=== PATIENT | female | born 1985 ===

== ENCOUNTER 2020-09-01 00:14 | Inpatient (IN) | payer BC ==
[2020-09-01] MEDS ORDERED: Butorphanol 1 MG/ML SDV IVPUSH PRN (00:52)
[2020-09-01] MEDS ORDERED: Nalbuphine 10 MG/1 ML Vial IVPUSH PRN (00:52)
[2020-09-01] MEDS ORDERED: Lidocaine 1% 50 ML MDV INJECT PRN (00:52)
[2020-09-01] MEDS ORDERED: Misoprostol 200 MCG Tab PO PRN (00:52)
[2020-09-01] MEDS ORDERED: Methylergonovine 0.2 MG/1 ML Amp IM PRN (00:52)
[2020-09-01] MEDS ORDERED: Sodium Chloride 0.9% 10 ML Syringe FLUSH PRN (00:52)
[2020-09-01] MEDS ORDERED: Tranexamic Acid 1,000 MG in Sodium Chloride 0.9% 100 ML IV PRN (00:52)
[2020-09-01] MEDS ORDERED: Water For Irrigation,Sterile 1,000 ML Container IRR PRN (00:52)
[2020-09-01] MEDS ORDERED: Sodium Chloride 0.9% 10 ML SDV IV PRN (00:52)
[2020-09-01] MEDS ORDERED: Carboprost Tromethamine 250 MCG/1 ML Amp IM PRN (00:52)
[2020-09-01] MEDS ORDERED: Sodium Chloride 0.9% 2.5 ML Syringe FLUSH PRN (00:52)
[2020-09-01] MEDS ORDERED: Terbutaline 1 MG/ML SDV SUBCUT PRN (00:52)
[2020-09-01] MEDS ORDERED: Ondansetron 4 MG/2 ML SDV IVPUSH PRN (01:00)
[2020-09-01] MEDS ORDERED: Oxytocin/0.9 % Sodium Chloride 30 UNIT/500 ML BAG IV SCH (01:00)
[2020-09-01] MEDS ORDERED: Ampicillin 2 GM Vial ONE (01:42)
[2020-09-01] MEDS ORDERED: Sodium Chloride 0.9% 100 ML ONE ×2 (01:42→05:35)
[2020-09-01] MEDS ORDERED: Misoprostol 25 MCG (1/4 of 100 MCG) Tab ONE (01:43)
[2020-09-01] MEDS: Misoprostol 25 MCG (1/4 of 100 MCG) Tab VAG SCH ×3 (01:51→10:23)
[2020-09-01] MEDS: Misoprostol 25 MCG (1/4 of 100 MCG) Tab PO SCH ×2 (01:51→05:51)
[2020-09-01] MEDS ORDERED: Ampicillin 2 GM in Sodium Chloride 0.9% 100 ML IV ONE (02:00)
[2020-09-01] MEDS ORDERED: Ampicillin 1 GM in Sodium Chloride 0.9% 50 ML IV SCH (05:30)
[2020-09-01] MEDS ORDERED: Ampicillin 1 GM Vial ONE (05:34)
[2020-09-01] MEDS: Ampicillin 1 GM in Sodium Chloride 0.9% 100 ML IV SCH ×5 (06:00→22:21)
--- NOTE | 2020-09-01 08:58 | PCM.LDHP ---
L&D History of Present Illness - General Date of Service: 09/01/20 Admit Problem/Dx: Patient Status Order with Admit Dx/Problem 09/01/20 00:52 Patient Status [ADT] Routine Admission Diagnosis/Problem Admission Diagnosis/Problem 09/01/20 08:52 Karen is a 34 yo at 38+2 weeks gestation (CORIE 09/13/2020) that presents to L&D today for medical induction of labor re: insulin-dependent type 2 diabetes mellitus. Patient seen in office 08/26/[address] Dean, RBAs of IOL and mode of cervical ripening (cytotec) discussed in office, consents signed. Reports adequate movement. Denies painful contractions, LOF, pattie vaginal bleeding at this time. O neg, RI, GBS positive. NKDA, plan for ampicillin prophylaxis in labor. EFW via [place] 8+ lbs. Pertinent medical history includes: DM2, spinal surgery. NKDA. Medications: 1000 mg metformin BID; Humulin Kwikpen 17 units in am and 17 units in pm. Patient has no complaints or concerns at this time. Source of Information: Patient History Limitations: Reports: No Limitations - History of Present Illness Improves with: Reports: None Worsens with: Reports: None Associated Symptoms: Reports: N - Related Data Allergies/Adverse Reactions: Allergies Allergy/AdvReac Type Severity Reaction Status Date / Time No Known Allergies Allergy Verified 08/12/20 09:19 Home Medications: Home Meds Insulin NPH Human Isophane [Humulin N Kwikpen] 17 units SUBCUT BID 09/01/20 [History] metFORMIN HCl [Metformin HCl] 1,000 mg PO BID 09/01/20 [History] Past Medical History HEENT History: Reports: None Cardiovascular History: Reports: None Respiratory History: Reports: None Gastrointestinal History: Reports: None Genitourinary History: Reports: None [employer]OR [employer]UR[employer]ES' [employer]ISTRY History: Reports: : 1 Para: 0 LMP (Approximate): Musculoskeletal History: Reports: Other (See Below) Other Musculoskeletal History: two spinal discs replaced during surgery using metal discs in lower back per pt Psychiatric History: Reports: Anxiety, Depression Other Psychiatric History: never took medications for anxiety or depression. pt states she has no suicidal thoughts Endocrine/Metabolic History: Reports: Diabetes, Type II (Insulin dependent), O besity/BMI 30+ Amount of Insulin Given with Breakfast (Units): 17 (insulin humulin N pen) Amount of Insulin Given with Dinner (Units): 17 (insulin humulin N pen) Hematologic History: Reports: None - Infectious Disease History Infectious Disease History: Reports: Chicken Pox Other Infectious Disease History: as a child pt had varicella - Past Surgical History HEENT Surgical History: Reports: None Cardiovascular Surgical History: Reports: None Endocrine Surgical History: Reports: None Musculoskeletal Surgical History: Reports: Other (See Below) Other Musculoskeletal Surgeries/Procedures:: two spinal discs replaced during surgery using metal discs in lower back per pt Dermatological Surgical History: Reports: None Social & Family History - Family History Family Medical History: No Pertinent Family History - Tobacco Use Tobacco Use Status *Q: Former Tobacco User Used Tobacco, but Quit: Yes Month/Year Tobacco Last Used: at 23 weeks gestation she quit when she found out she was Second Hand Smoke Exposure: No - Caffeine Use Caffeine Use: Reports: None - Alcohol Use Alcohol Use History: No - Recreational Drug Use Recreational Drug Use: Yes Drug Use in Last 12 Months: Yes Recreational Drug Type: Reports: Marijuana/Hashish Recreational Drug Last Use: at 23 weeks gestation of when she found out she was H&P Review of Systems - Review of Systems: Review Of Systems: Comprehensive ROS is negative, except as noted in HPI. General: Reports: No Symptoms HEENT: Reports: No Symptoms Pulmonary: Reports: No Symptoms Cardiovascular: Reports: No Symptoms Gastrointestinal: Reports: No Symptoms Genitourinary: Reports: No Symptoms Musculoskeletal: Reports: No Symptoms Skin: Reports: No Symptoms Psychiatric: Reports: No Symptoms Neurological: Reports: No Symptoms Hematologic/Lymphatic: Reports: No Symptoms Immunologic: Reports: No Symptoms L&D Exam - Exam Exam: See Below - Vital Signs Vital Signs: VSS, afebrile. See flowsheet. Weight: 224 lb - OB Specific Fundal Height In cm: 39 Contraction Duration (sec): 40-60 Contraction Frequency (min): 3-5 Contraction Intensity: Mild Movement: Active Heart Tones: Present Heart Tones per Min: 140 Heart Rate (FHR) Variability: Moderate (6-25 bmp) Presentation: Vertex (via TAUS) - Maier Score Maier Score Cervix Position: Posterior Maier Score Consistency: Firm Maier Score Effacement: 51-70% Maier Score Dilation: 1-2 cm Maier Score 's Station: -3 Maier Score Total: 3 - Exam General: Alert, Oriented, Cooperative HEENT: Hearing Intact, Mucosa Moist & [place], PERR[place] Neck: Supple, Trachea Midline Lungs: Clear to Auscultation, Normal Respiratory Effort Cardiovascular: Regular Rate, Regular Rhythm GI/Abdominal Exam: Normal Bowel Sounds, Soft, Non-Tender, No Organomegaly, No Distention Rectal Exam: Deferred Genitourinary: Normal external exam, Normal bimanual exam, Enlarged uterus (Gravid uterus) Back Exam: Normal Inspection, Full Range of Motion Extremities: Normal Inspection, Normal Range of Motion, Non-Tender, No Pedal Edema, Normal Capillary Refill Skin: Warm, Dry, Intact Neurological: Cranial Nerves Intact, Reflexes Equal Bilateral Psychiatric: Alert, Normal Affect, Normal Mood - Patient Data Lab Results Last 24 hrs: Laboratory Results - last 24 hr 09/01/20 09/01/20 09/01/20 Range/Units 01:20 01:20 01:20 WBC 9.51 (4.0-11.0) K/uL RBC 4.76 (4.30-5.90) M/uL Hgb 13.9 (12.0-16.0) g/dL Hct 41.4 (36.0-46.0) % MCV 87.0 (80.0-98.0) fL MCH 29.2 (27.0-32.0) pg MCHC 33.6 (31.0-37.0) g/dL RDW Std Deviation 44.5 (28.0-62.0) fl RDW Coeff of Griffin 14 (11.0-15.0) % Plt Count 166 (150-400) K/uL MPV 13.30 H (7.40-12.00) fL Nucleated RBC % 0.0 /100WBC Nucleated RBCs # 0 K/uL POC Glucose (70-99) mg/dL SARS-CoV-2 RNA (DANA) NEGATIVE (NEGATIVE) Blood Type O NEGATIVE Antibody Screen NEGATIVE 09/01/20 09/01/20 09/01/20 Range/Units 02:06 04:40 06:57 WBC (4.0-11.0) K/uL RBC (4.30-5.90) M/uL Hgb (12.0-16.0) g/dL Hct (36.0-46.0) % MCV (80.0-98.0) fL MCH (27.0-32.0) pg MCHC (31.0-37.0) g/dL RDW Std Deviation (28.0-62.0) fl RDW Coeff of Griffin (11.0-15.0) % Plt Count (150-400) K/uL MPV (7.40-12.00) fL Nucleated RBC % /100WBC Nucleated RBCs # K/uL POC Glucose 88 78 99 (70-99) mg/dL SARS-CoV-2 RNA (DANA) (NEGATIVE) Blood Type Antibody Screen Result Diagrams: 09/01/20 01:20 - Problem List (1) Encounter for induction of labor SNOMED Code(s): 784615824 ICD Code: Z34.90 - ENCNTR FOR SUPRVSN OF NORMAL , UNSP, UNSP TRIMESTER Status: Acute Priority: High Current Visit: Yes (2) Type 2 diabetes mellitus SNOMED Code(s): 28566485 ICD Code: E11.9 - TYPE 2 DIABETES MELLITUS WITHOUT COMPLICATIONS Status: Acute Priority: High Current Visit: Yes (3) Insulin dependent diabetes mellitus SNOMED Code(s): 89412777 ICD Code: [id number] - Status: Acute Priority: High Current Visit: Yes (4) 38 weeks gestation of SNOMED Code(s): 40985574 ICD Code: Z3A.38 - 38 WEEKS GESTATION OF Status: Acute Priority: High Current Visit: Yes Problem List Initiated/Reviewed/Updated: Yes Orders Last 24hrs: Active Orders 24 hr Category Date Time Status Patient Status [ADT] Routine ADT 09/01/20 00:52 Active Bedrest Bathroom Privileges [RC] ASDIRECTED Care 09/01/20 00:52 Active Bedrest Bathroom Privileges [RC] ASDIRECTED Care 09/01/20 01:00 Active Blood Glucose Check, Bedside [RC] Q4HR Care 09/01/20 07:00 Active Communication Order [RC] ASDIRECTED Care 09/01/20 00:52 Active Communication Order [RC] ASDIRECTED Care 09/01/20 00:52 Active Communication Order [RC] ASDIRECTED Care 09/01/20 00:52 Active Heart Tones [RC] CONTINUOUS Care 09/01/20 00:52 Active Non Stress Test [RC] PER UNIT ROUTINE Care 09/01/20 00:52 Active May Shower [RC] ASDIRECTED Care 09/01/20 00:52 Active Notify Provider [RC] PRN Care 09/01/20 00:52 Active Notify Provider [RC] PRN Care 09/01/20 00:52 Active Notify Provider [RC] PRN Care 09/01/20 00:52 Active Notify Provider [RC] STAT Care 09/01/20 00:52 Active Oxygen Therapy [RC] ASDIRECTED Care 09/01/20 00:52 Active Up ad Lola [RC] ASDIRECTED Care 09/01/20 00:52 Active Vaginal Exam [RC] PRN Care 09/01/20 00:52 Active Vaginal Exam [RC] PRN Care 09/01/20 00:52 Active Vital Signs [RC] PER UNIT ROUTINE Care 09/01/20 00:52 Active Vital Signs [RC] PER UNIT ROUTINE Care 09/01/20 00:52 Active Clear Liquid Diet [DIET] Diet 09/01/20 Breakfast Active Clear Liquid Diet [DIET] Diet 09/01/20 Breakfast Active RPR (SYPHILIS SERO) W/ RFLX [REF] Routine Lab 09/01/20 01:20 Received Ampicillin 1 gm Med 09/01/20 06:00 Active Sodium Chloride 0.9% [Normal Saline] 100 ml IV Q4H Butorphanol [Stadol] Med 09/01/20 01:37 Active 1 mg IVPUSH Q1H PRN Carboprost Tromethamine [Hemabate DS] Med 09/01/20 00:52 Active 250 mcg IM ASDIRECTED PRN Lactated Ringers [Ringers, Lactated] 1,000 ml Med 09/01/20 01:00 Active IV ASDIRECTED Lidocaine 1% [Xylocaine 1%] Med 09/01/20 00:52 Active 50 ml INJECT ONETIME PRN Methylergonovine [Methergine] Med 09/01/20 00:52 Active 0.2 mg IM ASDIRECTED PRN Nalbuphine [Nubain] Med 09/01/20 00:52 Active 10 mg IVPUSH Q1H PRN Ondansetron [Zofran] Med 09/01/20 01:00 Active 4 mg IVPUSH Q6H PRN Oxytocin/0.9 % Sodium Chloride [Oxytocin 30 Unit/500 ML Med 09/01/20 01:00 Active -NS] 30 unit in 500 ml IV TITRATE Oxytocin/0.9 % Sodium Chloride [Oxytocin 30 Unit/500 ML Med 09/01/20 01:00 Active -NS] 30 unit in 500 ml IV TITRATE Sodium Chloride 0.9% [Normal Saline] Med 09/01/20 00:52 Active 10 ml IV ASDIRECTED PRN Sodium Chloride 0.9% [Saline Flush] Med 09/01/20 00:52 Active 10 ml FLUSH ASDIRECTED PRN Sodium Chloride 0.9% [Saline Flush] Med 09/01/20 00:52 Active 2.5 ml FLUSH ASDIRECTED PRN Terbutaline [Brethine] Med 09/01/20 00:52 Active 0.25 mg SUBCUT ASDIRECTED PRN Tranexamic Acid [Cyklokapron] 1,000 mg Med 09/01/20 00:52 Active Sodium Chloride 0.9% [Normal Saline] 100 ml IV ONETIME Water For Irrigation,Sterile [Sterile Water for Med 09/01/20 00:52 Active Irrigation] 1,000 ml IRR ASDIRECTED PRN miSOPROStoL [Cytotec] Med 09/01/20 00:52 Active 200 mcg PO ONETIME PRN miSOPROStoL [Cytotec] Med 09/01/20 01:30 Active 25 mcg PO Q4H miSOPROStoL [Cytotec] Med 09/01/20 01:30 Active 25 mcg VAG Q4H Scalp Electrode [WOMSER] Per Unit Routine Oth 09/01/20 00:52 Ordered Medication Administration Instruction [OM.PC] Q3H Oth 09/01/20 01:00 Ordered Peripheral IV Insertion Adult [OM.PC] Routine Oth 09/01/20 00:52 Ordered Resuscitation Status Routine Resus Stat 09/01/20 00:52 Ordered Medication Orders Butorphanol Tartrate (Butorphanol 1 Mg/Ml Sdv) 1 mg IVPUSH Q1H PRN PRN Reason: Pain Carboprost Tromethamine (Carboprost Tromethamine 250 Mcg/1 Ml Amp) 250 mcg IM ASDIRECTED PRN PRN Reason: Post Hemorrhage Lactated Ringer's (Ringers, Lactated) 1,000 mls @ 150 mls/hr IV ASDIRECTED [facility]IAZ Oxytocin/Sodium Chloride (Oxytocin 30 Unit/500 Ml-Ns) 30 unit in 500 mls @ 2 mls/hr IV TITRATE [facility]; Protocol Tranexamic Acid 1,000 mg/ (Sodium Chloride) 110 mls @ 660 mls/hr IV ONETIME PRN PRN Reason: Bleeding Oxytocin/Sodium Chloride (Oxytocin 30 Unit/500 Ml-Ns) 30 unit in 500 mls @ 2 mls/hr IV TITRATE [facility]; Protocol Ampicillin Sodium 1 gm/ Sodium (Chloride) 100 mls @ 100 mls/hr IV Q4H [facility] Last Admin: 09/01/20 06:00 Dose: 100 mls/hr Documented by: LAURO Lidocaine HCl (Lidocaine 1% 50 Ml Mdv) 50 ml INJECT ONETIME PRN PRN Reason: Laceration repair Methylergonovine Maleate (Methylergonovine 0.2 Mg/1 Ml Amp) 0.2 mg IM ASDIRECTED PRN PRN Reason: Post Hemorrhage Misoprostol (Misoprostol 200 Mcg Tab) 200 mcg PO ONETIME PRN PRN Reason: Post Hemorrhage Misoprostol (Misoprostol 25 Mcg (1/4 Of 100 Mcg) Tab) 25 mcg PO Q4H [facility] Last Admin: 09/01/20 05:51 Dose: 25 mcg Documented by: Admin: 09/01/20 01:51 Dose: 25 mcg Documented by: LAURO Misoprostol (Misoprostol 25 Mcg (1/4 Of 100 Mcg) Tab) 25 mcg VAG Q4H [facility] Stop: 09/02/20 05:31 Last Admin: 09/01/20 05:51 Dose: 25 mcg Documented by: Admin: 09/01/20 01:51 Dose: 25 mcg Documented by: LAURO Nalbuphine HCl (Nalbuphine 10 Mg/1 Ml Vial) 10 mg IVPUSH Q1H PRN PRN Reason: Pain (severe 7-10) Ondansetron HCl (Ondansetron 4 Mg/2 Ml Sdv) 4 mg IVPUSH Q6H PRN PRN Reason: Nausea/Vomiting Sodium Chloride (Sodium Chloride 0.9% 10 Ml Syringe) 10 ml FLUSH ASDIRECTED PRN PRN Reason: Keep Vein Open Sodium Chloride (Sodium Chloride 0.9% 2.5 Ml Syringe) 2.5 ml FLUSH ASDIRECTED PRN PRN Reason: Keep Vein Open Sodium Chloride (Sodium Chloride 0.9% 10 Ml Sdv) 10 ml IV ASDIRECTED PRN PRN Reason: IV Use Sterile Water (Water For Irrigation,Sterile 1,000 Ml Container) 1,000 ml IRR ASDIRECTED PRN PRN Reason: delivery Terbutaline Sulfate (Terbutaline 1 Mg/Ml Sdv) 0.25 mg SUBCUT ASDIRECTED PRN PRN Reason: Tacysystole Assessment/Plan Comment:: Admit for observation in anticipation of of term viable . FHR Cat I. Mild occassional contractions noted. Expectant management, reassess cervical dilation ~1000 am. If no change has been made, may administer cytotec per orders. Continuous EFM + TOCO monitoring. FSBSs q 4 hours. Insulin administration as ordered. May consult anesthesia about epidural analgesia, may receive epidural >/=5 cm[address] See new orders. Dr. Dean notified and agreeable with POC, en route to bedside to assume care.
[2020-09-01] MEDS ORDERED: 50% Dextrose in Water 50 ML Syringe IV PRN ×2 (09:00→09:06)
[2020-09-01] MEDS ORDERED: Glucagon,Human Recombinant 1 MG Vial IM PRN ×2 (09:00→09:06)
[2020-09-01] MEDS: Insulin Isophane NPH, Human 100 Units/ML 10 ML Vial SUBCUT SCH ×2 (09:35→22:24)
[2020-09-01] MEDS ORDERED: Misoprostol 50 MCG (1/2 of 100 MCG) Tab VAG SCH (10:00)
[2020-09-01] MEDS ORDERED: Misoprostol 25 MCG (1/4 of 100 MCG) Tab PO SCH (10:00)
[2020-09-01] MEDS ORDERED: Misoprostol 50 MCG (1/2 of 100 MCG) Tab PO SCH (10:00)
[2020-09-01] MEDS ORDERED: Insulin Aspart 100 Units/ML 3 ML Pen SUBCUT SCH (11:30)
[2020-09-01] MEDS: Oxytocin/0.9 % Sodium Chloride 30 UNIT/500 ML BAG IV SCH (14:37)
[2020-09-01] MEDS: Lactated Ringers 1,000 ML IV SCH (20:00)
[2020-09-01] MEDS ORDERED: Sodium Chloride 0.9% 50 ML ONE (22:15)
[2020-09-02] MEDS: Misoprostol 25 MCG (1/4 of 100 MCG) Tab PO SCH ×2 (00:30→05:05)
[2020-09-02] MEDS: Misoprostol 25 MCG (1/4 of 100 MCG) Tab VAG SCH ×2 (00:31→05:05)
[2020-09-02] MEDS: Ampicillin 1 GM in Sodium Chloride 0.9% 100 ML IV SCH ×3 (02:59→10:10)
[2020-09-02] MEDS: Lactated Ringers 1,000 ML IV SCH ×4 (06:44→22:40)
[2020-09-02] MEDS: Insulin Isophane NPH, Human 100 Units/ML 10 ML Vial SUBCUT SCH ×2 (09:05→22:42)
[2020-09-02] MEDS: Oxytocin/0.9 % Sodium Chloride 30 UNIT/500 ML BAG IV SCH (09:06)
[2020-09-02] MEDS ORDERED: Ampicillin 1 GM in Sodium Chloride 0.9% 50 ML IV SCH ×2 (11:17→14:00)
[2020-09-02] MEDS ORDERED: Promethazine 25 MG/ML SDV IM PRN (13:08)
[2020-09-02] MEDS: Butorphanol 1 MG/ML SDV IVPUSH PRN ×2 (13:17→14:29)
[2020-09-02] MEDS ORDERED: Ropivacaine HCl/PF 100 ML ONE (14:47)
--- NOTE | 2020-09-02 15:32 | PCM.PREANE ---
Preanesthetic Assessment - Procedure Proposed Procedure: continuous labor epidural - Anesthesia/Transfusion/Family Hx Anesthesia History: Prior Anesthesia Without Reaction Transfusion History: Unknown - Review of Systems General: No Symptoms Pulmonary: No Symptoms Cardiovascular: No Symptoms Gastrointestinal: No Symptoms Neurological: No Symptoms Other: Reports: None - Physical Assessment Height: 5 ft 4 in Weight: 101.605 kg ASA Class: 2 Mental Status: Alert & Oriented x3 Dentition: Reports: Normal Dentition ROM/Head Extension: Full Lungs: Clear to Auscultation, Normal Respiratory Effort Cardiovascular: Regular Rate, Regular Rhythm - Lab Values: Laboratory Last Values WBC 9.51 K/uL (4.0-11.0) 09/01/20 01:20 RBC 4.76 M/uL (4.30-5.90) 09/01/20 01:20 Hgb 13.9 g/dL (12.0-16.0) 09/01/20 01:20 Hct 41.4 % (36.0-46.0) 09/01/20 01:20 MCV 87.0 fL (80.0-98.0) 09/01/20 01:20 MCH 29.2 pg (27.0-32.0) 09/01/20 01:20 MCHC 33.6 g/dL (31.0-37.0) 09/01/20 01:20 RDW Std Deviation 44.5 fl (28.0-62.0) 09/01/20 01:20 RDW Coeff of Griffin 14 % (11.0-15.0) 09/01/20 01:20 Plt Count 166 K/uL (150-400) 09/01/20 01:20 MPV 13.30 fL (7.40-12.00) H 09/01/20 01:20 Nucleated RBC % 0.0 /100WBC 09/01/20 01:20 Nucleated RBCs # 0 K/uL 09/01/20 01:20 POC Glucose 85 mg/dL (70-99) 09/02/20 14:01 RPR Non-Reac (Non-Reac) 09/01/20 01:20 SARS-CoV-2 RNA (DANA) NEGATIVE (NEGATIVE) 09/01/20 01:20 Blood Type O NEGATIVE 09/01/20 01:20 Antibody Screen NEGATIVE 09/01/20 01:20 - Allergies Allergies/Adverse Reactions: Allergies Allergy/AdvReac Type Severity Reaction Status Date / Time No Known Allergies Allergy Verified 08/12/20 09:19 - Acknowledgements Anesthesia Type Planned: Epidural Pt an Appropriate Candidate for the Planned Anesthesia: Yes Alternatives and Risks of Anesthesia Discussed w Pt/Guardian: Yes Pt/Guardian Understands and Agrees with Anesthesia Plan: Yes PreAnesthesia Questionnaire HEENT History: Reports: None Cardiovascular History: Reports: None Respiratory History: Reports: None Gastrointestinal History: Reports: None Genitourinary History: Reports: None 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 no scars on her back. pt. reported it was an anterior approach for the disc replacements, a request for the records was sent to the facility that completed the operation, however not able to get the records in a timely manner. [place] that since there was no scar in the back that ligamentum flavum was still in place. Pt. thought the disc replacements were at L4-5 and L5-S1. Pt. wasn't 100% sure of the correct level. Plan to do the epidural at L2-3. Neurological History: Reports: None Psychiatric History: Reports: Anxiety, Depression Other Psychiatric History: never took medications for anxiety or depression. pt states she has no suicidal thoughts Endocrine/Metabolic History: Reports: Diabetes, Type II (Insulin dependent), Obesity/BMI 30+ Hematologic History: Reports: None Dermatologic History: Reports: None - Infectious Disease History Infectious Disease History: Reports: Chicken Pox Other Infectious Disease History: as a child pt had varicella - Past Surgical History HEENT Surgical History: Reports: None Cardiovascular Surgical History: Reports: None Endocrine Surgical History: Reports: None Musculoskeletal Surgical History: Reports: Other (See Below) Other Musculoskeletal Surgeries/Procedures:: two spinal discs replaced during surgery using metal discs in lower back per pt Dermatological Surgical History: Reports: None - Past Imaging History Past Imaging History: Reports: Other (See Below) (post operative x-ray of spine surgery not available) - SUBSTANCE USE Tobacco Use Status *Q: Former Tobacco User Tobacco Use Within Last Twelve Months: Cigarettes Second Hand Smoke Exposure: No Recreational Drug Use History: Yes Recreational Drug Type: Reports: Marijuana/Hashish Recreational Drug Last Use: at 23 weeks gestation of when she found out she was - HOME MEDS Home Medications: Home Meds Insulin NPH Human Isophane [Humulin N Kwikpen] 17 units SUBCUT BID 09/01/20 [History] metFORMIN HCl [Metformin HCl] 1,000 mg PO BID 09/01/20 [History] - CURRENT (IN HOUSE) MEDS Current Meds: Current Medications Butorphanol Tartrate (Butorphanol 1 Mg/Ml Sdv) 1 mg IVPUSH Q1H PRN PRN Reason: Pain Last Admin: 09/02/20 14:29 Dose: 1 mg Documented by: Carboprost Tromethamine (Carboprost Tromethamine 250 Mcg/1 Ml Amp) 250 mcg IM ASDIRECTED PRN PRN Reason: Post Hemorrhage Dextrose/Water (50% Dextrose In Water 50 Ml Syringe) 50 ml IV ASDIRECTED PRN PRN Reason: Hypoglycemia Glucagon (Glucagon,Human Recombinant 1 Mg Vial) 1 mg IM ASDIRECTED PRN PRN Reason: Hypoglycemia Lactated Ringer's (Ringers, Lactated) 1,000 mls @ 150 mls/hr IV ASDIRECTED [facility] Last Admin: 09/02/20 15:20 Dose: 125 mls/hr Documented by: Oxytocin/Sodium Chloride (Oxytocin 30 Unit/500 Ml-Ns) 30 unit in 500 mls @ 2 mls/hr IV TITRATE [facility]; Protocol Tranexamic Acid 1,000 mg/ (Sodium Chloride) 110 mls @ 660 mls/hr IV ONETIME PRN PRN Reason: Bleeding Oxytocin/Sodium Chloride (Oxytocin 30 Unit/500 Ml-Ns) 30 unit in 500 mls @ 2 mls/hr IV TITRATE [facility]; Protocol Last Admin: 09/02/20 09:06 Dose: 2 munits/min, 2 mls/hr Documented by: Ampicillin Sodium 1 gm/ Sodium (Chloride) 50 mls @ 50 mls/hr IV Q4H [facility] Last Admin: 09/02/20 14:15 Dose: 50 mls/hr Documented by: Insulin Aspart (Insulin Aspart 100 Units/Ml 3 Ml Pen) 1 - 4 unit SUBCUT TIDAC [facility] Last Admin: 09/02/20 01:15 Dose: 2 units Documented by: Insulin Human NPH (Insulin Isophane Nph, Human 100 Units/Ml 10 Ml Vial) 15 unit SUBCUT BIDAC [facility] Last Admin: 09/02/20 09:05 Dose: 15 units Documented by: Lidocaine HCl (Lidocaine 1% 50 Ml Mdv) 50 ml INJECT ONETIME PRN PRN Reason: Laceration repair Methylergonovine Maleate (Methylergonovine 0.2 Mg/1 Ml Amp) 0.2 mg IM ASDIRECTED PRN PRN Reason: Post Hemorrhage Misoprostol (Misoprostol 200 Mcg Tab) 200 mcg PO ONETIME PRN PRN Reason: Post Hemorrhage Misoprostol (Misoprostol 25 Mcg (1/4 Of 100 Mcg) Tab) 25 mcg PO Q4H [facility] Last Admin: 09/01/20 10:23 Dose: 25 mcg Documented by: Nalbuphine HCl (Nalbuphine 10 Mg/1 Ml Vial) 10 mg IVPUSH Q1H PRN PRN Reason: Pain (severe 7-10) Ondansetron HCl (Ondansetron 4 Mg/2 Ml Sdv) 4 mg IVPUSH Q6H PRN PRN Reason: Nausea/Vomiting Promethazine HCl (Promethazine 25 Mg/Ml Sdv) 12.5 mg IM Q4H PRN PRN Reason: Nausea/Vomiting Last Admin: 09/02/20 13:25 Dose: 12.5 mg Documented by: Sodium Chloride (Sodium Chloride 0.9% 10 Ml Syringe) 10 ml FLUSH ASDIRECTED PRN PRN Reason: Keep Vein Open Sodium Chloride (Sodium Chloride 0.9% 2.5 Ml Syringe) 2.5 ml FLUSH ASDIRECTED PRN PRN Reason: Keep Vein Open Sodium Chloride (Sodium Chloride 0.9% 10 Ml Sdv) 10 ml IV ASDIRECTED PRN PRN Reason: IV Use Sterile Water (Water For Irrigation,Sterile 1,000 Ml Container) 1,000 ml IRR DIRECTED PRN PRN Reason: delivery Terbutaline Sulfate (Terbutaline 1 Mg/Ml Sdv) 0.25 mg SUBCUT ASDIRECTED PRN PRN Reason: Tacysystole Discontinued Medications Ampicillin Sodium (Ampicillin 1 Gm Vial) Confirm Administered Dose 1 gm .ROUTE .STK-MED ONE Stop: 09/01/20 05:35 Ampicillin Sodium (Ampicillin 2 Gm Vial) Confirm Administered Dose 2 gm .ROUTE .STK-MED ONE Stop: 09/01/20 01:43 Butorphanol Tartrate (Butorphanol 1 Mg/Ml Sdv) 1 mg IVPUSH Q1H PRN PRN Reason: Pain Ampicillin Sodium 2 gm/ Sodium (Chloride) 100 mls @ 200 mls/hr IV ONETIME ONE Stop: 09/01/20 02:29 Last Admin: 09/01/20 01:52 Dose: 200 mls/hr Documented by: Ampicillin Sodium 1 gm/ Sodium (Chloride) 50 mls @ 100 mls/hr IV Q4H [facility] Ampicillin Sodium 1 gm/ Sodium (Chloride) 100 mls @ 100 mls/hr IV Q4H [facility] Last Admin: 09/02/20 10:10 Dose: 100 mls/hr Documented by: Sodium Chloride (Normal Saline) Confirm Administered Dose 100 mls @ as directed .ROUTE .STK-MED ONE Stop: 09/01/20 05:36 Sodium Chloride (Normal Saline) Confirm Administered Dose 100 mls @ as directed .ROUTE .STK-MED ONE Stop: 09/01/20 01:43 Sodium Chloride (Normal Saline) Confirm Administered Dose 50 mls @ as directed .ROUTE .STK-MED ONE Stop: 09/01/20 22:16 Ropivacaine (Naropin 0.2%) Confirm Administered Dose 100 mls @ as directed .ROUTE .STK-MED ONE Stop: 09/02/20 14:48 Misoprostol (Misoprostol 25 Mcg (1/4 Of 100 Mcg) Tab) 25 mcg PO Q4H [facility] Last Admin: 09/02/20 05:05 Dose: 25 mcg Documented by: Misoprostol (Misoprostol 25 Mcg (1/4 Of 100 Mcg) Tab) 25 mcg VAG Q4H [facility] Stop: 09/02/20 05:31 Last Admin: 09/02/20 05:05 Dose: 25 mcg Documented by: Misoprostol (Misoprostol 50 Mcg (1/2 Of 100 Mcg) Tab) 50 mcg PO Q4H [facility] Misoprostol (Misoprostol 50 Mcg (1/2 Of 100 Mcg) Tab) 50 mcg VAG Q4H [facility] Stop: 09/02/20 06:01 Misoprostol (Misoprostol 25 Mcg (1/4 Of 100 Mcg) Tab) Confirm Administered Dose 50 mcg .ROUTE .STK-MED ONE Stop: 09/01/20 01:44 Misoprostol (Misoprostol 25 Mcg (1/4 Of 100 Mcg) Tab) 25 mcg VAG Q4H [facility] Stop: 09/02/20 06:01 Last Admin: 09/02/20 00:31 Dose: 25 mcg Documented by:
[2020-09-02] MEDS ORDERED: Sodium Chloride 0.9% 10 ML Syringe FLUSH PRN (17:10)
[2020-09-02] MEDS ORDERED: Sodium Chloride 0.9% 2.5 ML Syringe FLUSH PRN (17:10)
[2020-09-02] MEDS ORDERED: Sodium Chloride 0.9% 10 ML SDV IV PRN (17:10)
[2020-09-02] MEDS ORDERED: ceFAZolin 2 GM in Premix Bag 1 BAG IV ONE (17:10)
[2020-09-02] MEDS ORDERED: Citric Acid/Sodium Citrate Solution 30 ML Cup PO ONE (17:10)
[2020-09-02] MEDS ORDERED: Lactated Ringers 1,000 ML IV SCH (17:15)
[2020-09-02] MEDS ORDERED: Oxytocin/0.9 % Sodium Chloride 30 UNIT/500 ML BAG IV SCH (17:15)
[2020-09-02] MEDS ORDERED: Lidocaine 2% with EPINEPHrine 1:200,000 20 ML SDV ONE (17:16)
[2020-09-02] MEDS ORDERED: ceFAZolin 1 GM Vial ONE (17:18)
[2020-09-02] MEDS ORDERED: Oxytocin 10 Units/1 ML SDV ONE ×3 (17:18→19:10)
[2020-09-02] MEDS ORDERED: Morphine PF 10 MG/10 ML SDV ONE (17:18)
[2020-09-02] MEDS ORDERED: Sodium Chloride 0.9% 20 ML ONE (17:18)
[2020-09-02] MEDS ORDERED: Clindamycin Phosphate in D5W 50 ML ONE (17:30)
--- NOTE | 2020-09-02 17:35 | PCM.PNLD ---
Labor Progress Note - VS & Meds Active Medications: Current Medications Lactated Ringer's (Ringers, Lactated) 1,000 mls @ 500 mls/hr IV BOLUS RIAZ Oxytocin/Sodium Chloride (Oxytocin 30 Unit/500 Ml-Ns) 30 unit in 500 mls @ 250 mls/hr IV TITRATE RIAZ Cefazolin Sodium/Dextrose 2 gm (/ Premix) 50 mls @ 100 mls/hr IV ONETIME ONE Stop: 09/02/20 17:39 Sodium Chloride (Sodium Chloride 0.9% 10 Ml Syringe) 10 ml FLUSH ASDIRECTED PRN PRN Reason: Keep Vein Open Sodium Chloride (Sodium Chloride 0.9% 2.5 Ml Syringe) 2.5 ml FLUSH ASDIRECTED PRN PRN Reason: Keep Vein Open Sodium Chloride (Sodium Chloride 0.9% 10 Ml Sdv) 10 ml IV ASDIRECTED PRN PRN Reason: IV Use Discontinued Medications Ampicillin Sodium (Ampicillin 1 Gm Vial) Confirm Administered Dose 1 gm .ROUTE .STK-MED ONE Stop: 09/01/20 05:35 Ampicillin Sodium (Ampicillin 2 Gm Vial) Confirm Administered Dose 2 gm .ROUTE .STK-MED ONE Stop: 09/01/20 01:43 Butorphanol Tartrate (Butorphanol 1 Mg/Ml Sdv) 1 mg IVPUSH Q1H PRN PRN Reason: Pain Butorphanol Tartrate (Butorphanol 1 Mg/Ml Sdv) 1 mg IVPUSH Q1H PRN PRN Reason: Pain Last Admin: 09/02/20 14:29 Dose: 1 mg Documented by: Carboprost Tromethamine (Carboprost Tromethamine 250 Mcg/1 Ml Amp) 250 mcg IM ASDIRECTED PRN PRN Reason: Post Hemorrhage Cefazolin Sodium (Cefazolin 1 Gm Vial) Confirm Administered Dose 2 gm .ROUTE .STK-MED ONE Stop: 09/02/20 17:19 Citric Acid/Sodium Citrate (Citric Acid/Sodium Citrate Solution 30 Ml Cup) 30 ml PO ONETIME ONE Stop: 09/02/20 17:11 Dextrose/Water (50% Dextrose In Water 50 Ml Syringe) 50 ml IV ASDIRECTED PRN PRN Reason: Hypoglycemia Glucagon (Glucagon,Human Recombinant 1 Mg Vial) 1 mg IM ASDIRECTED PRN PRN Reason: Hypoglycemia Lactated Ringer's (Ringers, Lactated) 1,000 mls @ 150 mls/hr IV ASDIRECTED [facility] Last Admin: 09/02/20 16:28 Dose: 125 mls/hr Documented by: Oxytocin/Sodium Chloride (Oxytocin 30 Unit/500 Ml-Ns) 30 unit in 500 mls @ 2 mls/hr IV TITRATE [facility]; Protocol Tranexamic Acid 1,000 mg/ (Sodium Chloride) 110 mls @ 660 mls/hr IV ONETIME PRN PRN Reason: Bleeding Oxytocin/Sodium Chloride (Oxytocin 30 Unit/500 Ml-Ns) 30 unit in 500 mls @ 2 mls/hr IV TITRATE [facility]; Protocol Last Admin: 09/02/20 09:06 Dose: 2 munits/min, 2 mls/hr Documented by: Ampicillin Sodium 2 gm/ Sodium (Chloride) 100 mls @ 200 mls/hr IV ONETIME ONE Stop: 09/01/20 02:29 Last Admin: 09/01/20 01:52 Dose: 200 mls/hr Documented by: Ampicillin Sodium 1 gm/ Sodium (Chloride) 50 mls @ 100 mls/hr IV Q4H [facility] Ampicillin Sodium 1 gm/ Sodium (Chloride) 100 mls @ 100 mls/hr IV Q4H [facility] Last Admin: 09/02/20 10:10 Dose: 100 mls/hr Documented by: Sodium Chloride (Normal Saline) Confirm Administered Dose 100 mls @ as directed .ROUTE .STK-MED ONE Stop: 09/01/20 05:36 Sodium Chloride (Normal Saline) Confirm Administered Dose 100 mls @ as directed .ROUTE .ST-MED ONE Stop: 09/01/20 01:43 Sodium Chloride (Normal Saline) Confirm Administered Dose 50 mls @ as directed .ROUTE .ST-MED ONE Stop: 09/01/20 22:16 Ampicillin Sodium 1 gm/ Sodium (Chloride) 50 mls @ 50 mls/hr IV Q4H [facility] Last Admin: 09/02/20 14:15 Dose: 50 mls/hr Documented by: Ropivacaine (Naropin 0.2%) Confirm Administered Dose 100 mls @ as directed .ROUTE .STK-MED ONE Stop: 09/02/20 14:48 Sodium Chloride (Normal Saline) Confirm Administered Dose 20 mls @ as directed .ROUTE .STK-MED ONE Stop: 09/02/20 17:19 Insulin Aspart (Insulin Aspart 100 Units/Ml 3 Ml Pen) 1 - 4 unit SUBCUT TIDAC [facility] Last Admin: 09/02/20 01:15 Dose: 2 units Documented by: Insulin Human NPH (Insulin Isophane Nph, Human 100 Units/Ml 10 Ml Vial) 15 unit SUBCUT BIDAC [facility] Last Admin: 09/02/20 09:05 Dose: 15 units Documented by: Lidocaine HCl (Lidocaine 1% 50 Ml Mdv) 50 ml INJECT ONETIME PRN PRN Reason: Laceration repair Lidocaine/Epinephrine (Lidocaine 2% With Epinephrine 1:200,000 20 Ml Sdv) Confirm Administered Dose 20 ml .ROUTE .STK-MED ONE Stop: 09/02/20 17:17 Methylergonovine Maleate (Methylergonovine 0.2 Mg/1 Ml Amp) 0.2 mg IM ASDIRECTED PRN PRN Reason: Post Hemorrhage Misoprostol (Misoprostol 200 Mcg Tab) 200 mcg PO ONETIME PRN PRN Reason: Post Hemorrhage Misoprostol (Misoprostol 25 Mcg (1/4 Of 100 Mcg) Tab) 25 mcg PO Q4H [facility] Last Admin: 09/02/20 05:05 Dose: 25 mcg Documented by: Misoprostol (Misoprostol 25 Mcg (1/4 Of 100 Mcg) Tab) 25 mcg VAG Q4H [facility] Stop: 09/02/20 05:31 Last Admin: 09/02/20 05:05 Dose: 25 mcg Documented by: Misoprostol (Misoprostol 50 Mcg (1/2 Of 100 Mcg) Tab) 50 mcg PO Q4H [facility] Misoprostol (Misoprostol 50 Mcg (1/2 Of 100 Mcg) Tab) 50 mcg VAG Q4H [facility] Stop: 09/02/20 06:01 Misoprostol (Misoprostol 25 Mcg (1/4 Of 100 Mcg) Tab) Confirm Administered Dose 50 mcg .ROUTE .STK-MED ONE Stop: 09/01/20 01:44 Misoprostol (Misoprostol 25 Mcg (1/4 Of 100 Mcg) Tab) 25 mcg PO Q4H [facility] Last Admin: 09/01/20 10:23 Dose: 25 mcg Documented by: Misoprostol (Misoprostol 25 Mcg (1/4 Of 100 Mcg) Tab) 25 mcg VAG Q4H [facility] Stop: 09/02/20 06:01 Last Admin: 09/02/20 00:31 Dose: 25 mcg Documented by: Morphine Sulfate (Morphine Pf 10 Mg/10 Ml Sdv) Confirm Administered Dose 10 mg .ROUTE .STK-MED ONE Stop: 09/02/20 17:19 Nalbuphine HCl (Nalbuphine 10 Mg/1 Ml Vial) 10 mg IVPUSH Q1H PRN PRN Reason: Pain (severe 7-10) Ondansetron HCl (Ondansetron 4 Mg/2 Ml Sdv) 4 mg IVPUSH Q6H PRN PRN Reason: Nausea/Vomiting Oxytocin (Oxytocin 10 Units/1 Ml Sdv) Confirm Administered Dose 20 unit .ROUTE .STK-MED ONE Stop: 09/02/20 17:19 Promethazine HCl (Promethazine 25 Mg/Ml Sdv) 12.5 mg IM Q4H PRN PRN Reason: Nausea/Vomiting Last Admin: 09/02/20 13:25 Dose: 12.5 mg Documented by: Sodium Chloride (Sodium Chloride 0.9% 10 Ml Syringe) 10 ml FLUSH ASDIRECTED PRN PRN Reason: Keep Vein Open Sodium Chloride (Sodium Chloride 0.9% 2.5 Ml Syringe) 2.5 ml FLUSH ASDIRECTED PRN PRN Reason: Keep Vein Open Sodium Chloride (Sodium Chloride 0.9% 10 Ml Sdv) 10 ml IV ASDIRECTED PRN PRN Reason: IV Use Sterile Water (Water For Irrigation,Sterile 1,000 Ml Container) 1,000 ml IRR ASDIRECTED PRN PRN Reason: delivery Terbutaline Sulfate (Terbutaline 1 Mg/Ml Sdv) 0.25 mg SUBCUT ASDIRECTED PRN PRN Reason: Tacysystole - Uterine Contractions Uterine Monitoring Mode: External [place] Contraction Frequency (min): 3-5 Contraction Duration (sec): 40-60 Contraction Intensity: Mild to Moderate Uterine Resting Tone: Soft - Monitoring Heart Rate (FHR) Variability: Moderate (6-25 bmp) Accelerations: Present, 15x15 Decelerations: Late, Variable Strip Review: Category II - Vaginal Exam Dilation (cm): 4 Effacement (Percent): 50 Station: -2 Cervical Position: Midposition Vaginal Exam Comment: head with caput - Labor Progress (Free Text) Labor Progress: 34 yo at 38+3 weeks gestation (CORIE 09/13/2020) admitted for medical induction of labor re: insulin-dependent type 2 diabetes mellitus. O neg, RI, GBS positive. NKDA. EFW via Leopolds 8+ lbs Patient had been induced for about 40hrs, with total of 6 rounds of cytotec, pitocin and AROM IOL has been complicated by variable decels, a few prolonged decels and intolerance to IOL. Cervical exam has been 3-4cm for over 5hrs and exam reveals caput. Discussed risks and benefits of vs expectant management. Risks of discussed, including infections, hemorrhage, laceration, injury to the bowel. Patient agreeable to proceed with .
[2020-09-02] MEDS ORDERED: Midazolam 1 MG/ML 2 ML SDV ONE (18:53)
--- NOTE | 2020-09-02 20:07 | PCM.DEL ---
L & D Note - General Info Date of Service: 09/02/20 Mother's Due Date: 09/12/20 - Delivery Note Labor: Induced by ARM, Induced by Oxytocin Cervical Ripening Method: Misoprostil, Oxytocin Delivery Outcome: Livebirth Infant Delivery Method: Primary Presentation: Vertex (via TAUS) Nuchal Cord: Present Anesthesia Type: Combined Spinal Epidural Amniotic Fluid Description: Clear Placenta: Intact Cord: 3 Vessels Estimated Blood Loss: 1,000 Resuscitation Needed: No : Suctioned, Stimulated Score 1 min: 4 Score 5 min: 9 Post Delivery Events: Bladder Laceration Delivery Comments (Free Text/Narrative):: 34 yo G1 now P1 s/p PLTCS at 38+3 weeks gestation (CORIE 09/13/2020). Live female, 7lb 0oz and Apgars 4/9. Delivered ROSE, nuchal cord x1, No meconium. Delivery c/b intra-operative bladder injury, repaired by the on-call surgeon. EBL 1000cc. Hemostasis. Patient tolerated procedure well, recovering in LDR. Infant by her side. See operative report for detailed procedure. Induction Criteria - Maier Score Maier Score Dilation: 3-4 cm Maier Score Effacement: 40-50% Maier Score Infant's Station: -2 Maier Score Consistency: Medium Maier Score Cervix Position: Midposition Maier Score Total: 6 Maier Score Presenting Part: Reports: Cephalic - Induction Gestational Age >/= 39 wks: No Medical Indication: Insulin dependent diabetes mellitus Estimated Pelvis: Reports: Borderline Reassuring Monitoring Strip: Yes Absence of Tachy Systole: Yes - Augmentation Estimated Pelvis: Reports: Borderline Weight Estimated:: Reports: LGA Estimated Weight if LGA: 8 kg Reassuring Monitoring Strip: Yes Absence of Tachy Systole: Yes - General Info Date of Service: 09/02/20 Admission Dx/Problem (Free Text): Patient Status Order with Admit Dx/Problem 09/01/20 00:52 Patient Status [ADT] Routine Admission Diagnosis/Problem Admission Diagnosis/Problem 09/01/20 08:52 Karen is a 34 yo at 38+2 weeks gestation (CORIE 09/13/2020) that presents to L&D today for medical induction of labor re: insulin-dependent type 2 diabetes mellitus. Patient seen in office 08/26/[address] Dean RBAs of IOL and mode of cervical ripening (cytotec) discussed in office, consents signed. Reports adequate movement. Denies painful contractions, LOF, pattie vaginal bleeding at this time. O neg, RI, GBS positive. NKDA, plan for ant enatal ampicillin prophylaxis in labor. EFW via Leopolds 8+ lbs. Pertinent medical history includes: DM2, spinal surgery. NKDA. Medications: 1000 mg metformin BID; Humulin Kwikpen 17 units in am and 17 units in pm. Patient has no complaints or concerns at this time. Functional Status: Reports: Pain Controlled - Review of Systems General: Reports: No Symptoms HEENT: Reports: No Symptoms Pulmonary: Reports: No Symptoms Cardiovascular: Reports: No Symptoms - Patient Data Weight - Most Recent: 101.605 kg I&O - Last 24 Hours: Intake & Output 09/02/20 09/02/20 09/02/20 06:59 14:59 22:59 Output Total Balance @ Lab Results Last 24 Hours: Laboratory Results - last 24 hr 09/01/20 09/01/20 09/02/20 Range/Units 01:20 22:07 00:41 POC Glucose 88 166 H (70-99) mg/dL RPR Non-Reac (Non-Reac) 09/02/20 09/02/20 09/02/20 Range/Units 03:21 06:37 10:37 POC Glucose 109 H 84 97 (70-99) mg/dL RPR (Non-Reac) 09/02/20 09/02/20 09/02/20 Range/Units 13:03 14:01 15:56 POC Glucose 74 85 86 (70-99) mg/dL RPR (Non-Reac) Med Orders - Current: Current Medications Lactated Ringer's (Ringers, Lactated) 1,000 mls @ 500 mls/hr IV BOLUS RIAZ Oxytocin/Sodium Chloride (Oxytocin 30 Unit/500 Ml-Ns) 30 unit in 500 mls @ 250 mls/hr IV TITRATE RIAZ Sodium Chloride (Sodium Chloride 0.9% 10 Ml Syringe) 10 ml FLUSH ASDIRECTED PRN PRN Reason: Keep Vein Open Sodium Chloride (Sodium Chloride 0.9% 2.5 Ml Syringe) 2.5 ml FLUSH ASDIRECTED PRN PRN Reason: Keep Vein Open Sodium Chloride (Sodium Chloride 0.9% 10 Ml Sdv) 10 ml IV ASDIRECTED PRN PRN Reason: IV Use Discontinued Medications Ampicillin Sodium (Ampicillin 1 Gm Vial) Confirm Administered Dose 1 gm .ROUTE .STK-MED ONE Stop: 09/01/20 05:35 Ampicillin Sodium (Ampicillin 2 Gm Vial) Confirm Administered Dose 2 gm .ROUTE .STK-MED ONE Stop: 09/01/20 01:43 Butorphanol Tartrate (Butorphanol 1 Mg/Ml Sdv) 1 mg IVPUSH Q1H PRN PRN Reason: Pain Butorphanol Tartrate (Butorphanol 1 Mg/Ml Sdv) 1 mg IVPUSH Q1H PRN PRN Reason: Pain Last Admin: 09/02/20 14:29 Dose: 1 mg Documented by: Carboprost Tromethamine (Carboprost Tromethamine 250 Mcg/1 Ml Amp) 250 mcg IM ASDIRECTED PRN PRN Reason: Post Hemorrhage Cefazolin Sodium (Cefazolin 1 Gm Vial) Confirm Administered Dose 2 gm .ROUTE .STK-MED ONE Stop: 09/02/20 17:19 Citric Acid/Sodium Citrate (Citric Acid/Sodium Citrate Solution 30 Ml Cup) 30 ml PO ONETIME ONE Stop: 09/02/20 17:11 Dextrose/Water (50% Dextrose In Water 50 Ml Syringe) 50 ml IV ASDIRECTED PRN PRN Reason: Hypoglycemia Glucagon (Glucagon,Human Recombinant 1 Mg Vial) 1 mg IM ASDIRECTED PRN PRN Reason: Hypoglycemia Lactated Ringer's (Ringers, Lactated) 1,000 mls @ 150 mls/hr IV ASDIRECTED [facility] Last Admin: 09/02/20 16:28 Dose: 125 mls/hr Documented by: Oxytocin/Sodium Chloride (Oxytocin 30 Unit/500 Ml-Ns) 30 unit in 500 mls @ 2 mls/hr IV TITRATE [facility]; Protocol Tranexamic Acid 1,000 mg/ (Sodium Chloride) 110 mls @ 660 mls/hr IV ONETIME PRN PRN Reason: Bleeding Oxytocin/Sodium Chloride (Oxytocin 30 Unit/500 Ml-Ns) 30 unit in 500 mls @ 2 mls/hr IV TITRATE [facility]; Protocol Last Admin: 09/02/20 09:06 Dose: 2 munits/min, 2 mls/hr Documented by: Ampicillin Sodium 2 gm/ Sodium (Chloride) 100 mls @ 200 mls/hr IV ONETIME ONE Stop: 09/01/20 02:29 Last Admin: 09/01/20 01:52 Dose: 200 mls/hr Documented by: Ampicillin Sodium 1 gm/ Sodium (Chloride) 50 mls @ 100 mls/hr IV Q4H [facility] Ampicillin Sodium 1 gm/ Sodium (Chloride) 100 mls @ 100 mls/hr IV Q4H [facility] Last Admin: 09/02/20 10:10 Dose: 100 mls/hr Documented by: Sodium Chloride (Normal Saline) Confirm Administered Dose 100 mls @ as directed .ROUTE .[facility]-MED ONE Stop: 09/01/20 05:36 Sodium Chloride (Normal Saline) Confirm Administered Dose 100 mls @ as directed .ROUTE .[facility] ONE Stop: 09/01/20 01:43 Sodium Chloride (Normal Saline) Confirm Administered Dose 50 mls @ as directed .ROUTE .[facility] ONE Stop: 09/01/20 22:16 Ampicillin Sodium 1 gm/ Sodium (Chloride) 50 mls @ 50 mls/hr IV Q4H [facility] Last Admin: 09/02/20 14:15 Dose: 50 mls/hr Documented by: Ropivacaine (Naropin 0.2%) Confirm Administered Dose 100 mls @ as directed .ROUTE .[facility] ONE Stop: 09/02/20 14:48 Cefazolin Sodium/Dextrose 2 gm (/ Premix) 50 mls @ 100 mls/hr IV ONETIME ONE Stop: 09/02/20 17:39 Sodium Chloride (Normal Saline) Confirm Administered Dose 20 mls @ as directed .ROUTE .[facility] ONE Stop: 09/02/20 17:19 Clindamycin Phosphate (Cleocin In D5w 600 Mg/50 Ml) Confirm Administered Dose 50 mls @ as directed .ROUTE .[facility] ONE Stop: 09/02/20 17:31 Insulin Aspart (Insulin Aspart 100 Units/Ml 3 Ml Pen) 1 - 4 unit SUBCUT TIDAC [facility] Last Admin: 09/02/20 01:15 Dose: 2 units Documented by: Insulin Human NPH (Insulin Isophane Nph, Human 100 Units/Ml 10 Ml Vial) 15 unit SUBCUT BIDAC [facility] Last Admin: 09/02/20 09:05 Dose: 15 units Documented by: Lidocaine HCl (Lidocaine 1% 50 Ml Mdv) 50 ml INJECT ONETIME PRN PRN Reason: Laceration repair Lidocaine/Epinephrine (Lidocaine 2% With Epinephrine 1:200,000 20 Ml Sdv) Confirm Administered Dose 20 ml .ROUTE .STK-MED ONE Stop: 09/02/20 17:17 Methylergonovine Maleate (Methylergonovine 0.2 Mg/1 Ml Amp) 0.2 mg IM ASDIRECTED PRN PRN Reason: Post Hemorrhage Midazolam HCl (Midazolam 1 Mg/Ml 2 Ml Sdv) Confirm Administered Dose 2 mg .ROUTE .STK-MED ONE Stop: 09/02/20 18:54 Misoprostol (Misoprostol 200 Mcg Tab) 200 mcg PO ONETIME PRN PRN Reason: Post Hemorrhage Misoprostol (Misoprostol 25 Mcg (1/4 Of 100 Mcg) Tab) 25 mcg PO Q4H [facility] Last Admin: 09/02/20 05:05 Dose: 25 mcg Documented by: Misoprostol (Misoprostol 25 Mcg (1/4 Of 100 Mcg) Tab) 25 mcg VAG Q4H [facility] Stop: 09/02/20 05:31 Last Admin: 09/02/20 05:05 Dose: 25 mcg Documented by: Misoprostol (Misoprostol 50 Mcg (1/2 Of 100 Mcg) Tab) 50 mcg PO Q4H [facility] Misoprostol (Misoprostol 50 Mcg (1/2 Of 100 Mcg) Tab) 50 mcg VAG Q4H [facility] Stop: 09/02/20 06:01 Misoprostol (Misoprostol 25 Mcg (1/4 Of 100 Mcg) Tab) Confirm Administered Dose 50 mcg .ROUTE .STK-MED ONE Stop: 09/01/20 01:44 Misoprostol (Misoprostol 25 Mcg (1/4 Of 100 Mcg) Tab) 25 mcg PO Q4H [facility] Last Admin: 09/01/20 10:23 Dose: 25 mcg Documented by: Misoprostol (Misoprostol 25 Mcg (1/4 Of 100 Mcg) Tab) 25 mcg VAG Q4H [facility] Stop: 09/02/20 06:01 Last Admin: 09/02/20 00:31 Dose: 25 mcg Documented by: Morphine Sulfate (Morphine Pf 10 Mg/10 Ml Sdv) Confirm Administered Dose 10 mg .ROUTE .STK-MED ONE Stop: 09/02/20 17:19 Nalbuphine HCl (Nalbuphine 10 Mg/1 Ml Vial) 10 mg IVPUSH Q1H PRN PRN Reason: Pain (severe 7-10) Ondansetron HCl (Ondansetron 4 Mg/2 Ml Sdv) 4 mg IVPUSH Q6H PRN PRN Reason: Nausea/Vomiting Oxytocin (Oxytocin 10 Units/1 Ml Sdv) Confirm Administered Dose 20 unit .ROUTE .STK-MED ONE Stop: 09/02/20 17:19 Oxytocin (Oxytocin 10 Units/1 Ml Sdv) Confirm Administered Dose 10 unit .ROUTE .STK-MED ONE Stop: 09/02/20 18:36 Oxytocin (Oxytocin 10 Units/1 Ml Sdv) Confirm Administered Dose 10 unit .ROUTE .STK-MED ONE Stop: 09/02/20 19:11 Promethazine HCl (Promethazine 25 Mg/Ml Sdv) 12.5 mg IM Q4H PRN PRN Reason: Nausea/Vomiting Last Admin: 09/02/20 13:25 Dose: 12.5 mg Documented by: Sodium Chloride (Sodium Chloride 0.9% 10 Ml Syringe) 10 ml FLUSH ASDIRECTED PRN PRN Reason: Keep Vein Open Sodium Chloride (Sodium Chloride 0.9% 2.5 Ml Syringe) 2.5 ml FLUSH ASDIRECTED PRN PRN Reason: Keep Vein Open Sodium Chloride (Sodium Chloride 0.9% 10 Ml Sdv) 10 ml IV ASDIRECTED PRN PRN Reason: IV Use Sterile Water (Water For Irrigation,Sterile 1,000 Ml Container) 1,000 ml IRR ASDIRECTED PRN PRN Reason: delivery Terbutaline Sulfate (Terbutaline 1 Mg/Ml Sdv) 0.25 mg SUBCUT ASDIRECTED PRN PRN Reason: Tacysystole - Exam Urinary Catheter Total Time: 0Days 0Hours General: Alert, Oriented Neck: Supple Lungs: Clear to Auscultation, Normal Respiratory Effort Cardiovascular: Regular Rate Extremities: Normal Inspection Psy/Mental Status: Alert, Normal Affect, Normal Mood - Problem List & Annotations (1) Status post primary low transverse section SNOMED Code(s): 554190495, 92356853, 055522899, 471200979, 909561343 Code(s): Z98.891 - HISTORY OF UTERINE SCAR FROM PREVIOUS SURGERY Status: Acute Priority: High Current Visit: Yes (2) 38 weeks gestation of SNOMED Code(s): 92763784 Code(s): Z3A.38 - 38 WEEKS GESTATION OF Status: Acute Priority: High Current Visit: Yes (3) Insulin dependent diabetes mellitus SNOMED Code(s): 15343483 Code(s): PDA7274 - Status: Acute Priority: High Current Visit: Yes - Problem List Review Problem List Initiated/Reviewed/Updated: Yes - My Orders Last 24 Hours: My Active Orders 09/02/20 17:10 Patient Status [ADT] Routine Non Stress Test [RC] PER UNIT ROUTINE Procedure Site Prep Instruct [RC] ASDIRECTED Up ad Lola [RC] ASDIRECTED Urinary Catheter Assessment [RC] ASDIRECTED Verify Patient Consent Obtain [RC] ASDIRECTED Vital Signs [RC] PER UNIT ROUTINE Sodium Chloride 0.9% [Normal Saline] 10 ml IV ASDIRECTED PRN Sodium Chloride 0.9% [Saline Flush] 10 ml FLUSH ASDIRECTED PRN Sodium Chloride 0.9% [Saline Flush] 2.5 ml FLUSH ASDIRECTED PRN Peripheral IV Insertion Adult [OM.PC] Routine Schedule Procedure [COMM] Per Unit Routine Resuscitation Status Routine 09/02/20 17:12 Notify Provider Vital Signs [RC] PRN 09/02/20 17:15 Lactated Ringers [Ringers, Lactated] 1,000 ml IV BOLUS Oxytocin/0.9 % Sodium Chloride [Oxytocin 30 Unit/500 ML-NS] 30 unit in 500 ml IV TITRATE 09/02/20 19:41 RHOGAM, [RHIG WORKUP, ] [BBK] Routine - Plan Plan:: 34 yo at 38+3 weeks gestation (CORIE 09/13/2020) admitted for medical induction of labor re: insulin-dependent type 2 diabetes mellitus. O neg, RI, GBS positive. NKDA. EFW via Leopolds 8+ lbs Patient had been induced for about 40hrs, with total of 6 rounds of cytotec, pitocin and AROM IOL has been complicated by variable decels, a few prolonged decels and intolerance to IOL. Cervical exam has been 3-4cm for over 5hrs and exam reveals caput. Discussed risks and benefits of vs expectant management. Risks of discussed, including infections, hemorrhage, laceration, injury to the bowel. Patient agreeable to proceed with . S/P PLTCS c/b intraoperative bladder injury, repaired by on-call surgeon. Patient in recovery room with baby by her side, doing well. Patient to keep hooker for ~1week. Routine care.
[2020-09-02] MEDS ORDERED: Acetaminophen/oxyCODONE 325-5 MG Tab PO PRN ×3 (20:11→21:53)
[2020-09-02] MEDS ORDERED: fentaNYL 100 MCG/2 ML SDV IVPUSH PRN (20:11)
[2020-09-02] MEDS ORDERED: Ketorolac 15 MG/ML SDV IVPUSH PRN (20:15)
[2020-09-02] MEDS ORDERED: HYDROmorphone 2 MG/ML Syringe IVPUSH PRN (20:20)
[2020-09-02] MEDS ORDERED: Naloxone 0.4 MG/ML Syringe IVPUSH PRN (20:23)
[2020-09-02] MEDS ORDERED: Ondansetron 4 MG/2 ML SDV IVPUSH PRN ×2 (20:23→21:53)
[2020-09-02] MEDS ORDERED: Nalbuphine 10 MG/1 ML Vial IM PRN (20:26)
--- NOTE | 2020-09-02 20:57 | PCM.POSTAN ---
POST ANESTHESIA ASSESSMENT - MENTAL STATUS Mental Status: Alert, Oriented - VITAL SIGNS Vital Signs: BP-139/95, HR-92, RR-14, see PIP for more vitals - RESPIRATORY Respiratory Status: Respiratory Rate WNL, Airway Patent, O2 Saturation Stable - CARDIOVASCULAR CV Status: Pulse Rate WNL, Blood Pressure Stable - GASTROINTESTINAL GI Status: No Symptoms - PAIN Pain Score: 0 - POST OP HYDRATION Hydration Status: Adequate & Stable
[2020-09-02] MEDS ORDERED: Misoprostol 200 MCG Tab RECTAL PRN (21:53)
[2020-09-02] MEDS ORDERED: Lanolin 100% Cream 7 GM Tube TOP PRN (21:53)
[2020-09-02] MEDS ORDERED: Methylergonovine 0.2 MG/1 ML Amp IM PRN (21:53)
[2020-09-02] MEDS ORDERED: diphenhydrAMINE 50 MG/ML SDV IVPUSH PRN (21:53)
[2020-09-02] MEDS ORDERED: Tranexamic Acid 1,000 MG in Sodium Chloride 0.9% 100 ML IV PRN (21:53)
[2020-09-02] MEDS ORDERED: Bisacodyl 10 MG Supp RECTAL PRN (21:53)
[2020-09-02] MEDS ORDERED: Oxytocin 10 Units/1 ML SDV IM PRN (21:53)
[2020-09-02] MEDS ORDERED: Oxytocin/Lactated Ringers 30 UNIT/500 ML BAG IV SCH (22:00)
[2020-09-02] MEDS ORDERED: 50% Dextrose in Water 50 ML Syringe IVPUSH PRN (22:07)
[2020-09-02] MEDS ORDERED: Glucagon,Human Recombinant 1 MG Vial IM PRN (22:07)
[2020-09-02] MEDS ORDERED: Insulin Aspart 100 Units/ML 3 ML Pen SUBCUT PRN (22:16)
[2020-09-02] MEDS: Ketorolac 30 MG/ML SDV IVPUSH SCH (22:54)
--- NOTE | 2020-09-03 02:16 | OR ---
SURGEON: Arash Sánchez M.D. DATE OF PROCEDURE: 09/02/2020 This is also an intraoperative consultation. PREOPERATIVE DIAGNOSIS: Bladder injury at the time of section. POSTOPERATIVE DIAGNOSIS: Bladder injury at the time of section. ANESTHESIA: Epidural. The surgeon for the section was Dr. Dean. The surgeon for the bladder repair was Dr. Sánchez. INTRAOPERATIVE FLUID REPLACEMENT: 1500 mL of crystalloid. ESTIMATED BLOOD LOSS: 1000. [employer] CLASSIFICATION: IIE. HISTORICAL NOTE: The patient is a 34-year-old female undergoing a section, who at the time of section sustained a bladder injury. I was called to assess the bladder injury and repair the bladder. DESCRIPTION OF PROCEDURE: The patient had already completed the section when I arrived into the operating room. The self-retaining retractor was removed, and the bladder injury could be seen, which was a full-thickness bladder injury. The Phillips catheter could be seen in the base of the wound as well as the bladder mucosa. The cystorrhaphy was completed with approximation of the mucosa with running 3-0 chromic. A second seromuscular layer was also placed with 3-0 chromic in a running fashion with a couple of extra imbricating sutures. The wound was then inspected, and the bladder repair appeared intact. The Phillips catheter was left in place. The patient remained hemodynamically stable during the time that I was present in the operating room. Once the bladder was closed, I did scrub out of surgery, and Dr. Dean will close the abdomen and complete the section. The patient tolerated the procedure well during the time that I was present. NELSON / JESSIE /[id number]
[2020-09-03] MEDS: Lactated Ringers 1,000 ML IV SCH (03:00)
[2020-09-03] MEDS: Ketorolac 30 MG/ML SDV IVPUSH SCH ×3 (05:08→19:10)
[2020-09-03] MEDS ORDERED: Insulin Isophane NPH, Human 100 Units/ML 10 ML Vial SUBCUT SCH (07:30)
--- NOTE | 2020-09-03 07:39 | PCM48HPAN ---
Post Anesthesia Note - EVALUATION WITHIN 48HRS OF ANESTHETIC Vital Signs in Normal Range: Yes Patient Participated in Evaluation: Yes Respiratory Function Stable: Yes Airway Patent: Yes Cardiovascular Function Stable: Yes Hydration Status Stable: Yes Pain Control Satisfactory: Yes Nausea and Vomiting Control Satisfactory: Yes Mental Status Recovered: Yes Vital Signs: Last Vital Signs Temp 36.8 C 09/02/20 06:00 Pulse 76 09/02/20 07:00 Resp 16 09/02/20 07:00 BP 103/67 09/02/20 06:00 Pulse Ox 97 09/02/20 07:00
[2020-09-03] MEDS ORDERED: Docusate Sodium 100 MG Cap PO SCH (09:00)
--- NOTE | 2020-09-03 17:28 | PCM.PNPP ---
- General Info Date of Service: 09/03/20 Subjective Update: S/P PLTCS c/b intraoperative bladder injury, repaired. Mother and baby are doing well. Hooker catheter in place, draining clear yellow urine. Patient is passing gas. Eating without discomfort. Minimal bleeding Functional Status: Reports: Pain Controlled - Review of Systems General: Reports: No Symptoms HEENT: Reports: No Symptoms Pulmonary: Reports: No Symptoms Cardiovascular: Reports: No Symptoms Gastrointestinal: Reports: No Symptoms Genitourinary: Reports: No Symptoms Musculoskeletal: Reports: No Symptoms Skin: Reports: No Symptoms Neurological: Reports: No Symptoms Psychiatric: Reports: No Symptoms - General Info Date of Service: 09/03/20 - Patient Data Vital Signs - Most Recent: Last Vital Signs Temp 97 F 09/03/20 16:31 Pulse 73 09/03/20 16:31 Resp 18 09/03/20 16:31 BP 126/78 09/03/20 16:31 Pulse Ox 96 09/03/20 16:31 Weight - Most Recent: 101.605 kg I&O - Last 24 Hours: Intake & Output 09/03/20 09/03/20 09/03/20 06:59 14:59 22:59 Output Total 50 Balance -50 @ Lab Results - Last 24 Hours: Laboratory Results - last 24 hr 09/02/20 09/02/20 09/02/20 Range/Units 18:29 18:29 20:30 Hgb (12.0-16.0) g/dL Hct (36.0-46.0) % Cord ABG pH 6.968 L (7.18-7.38) Cord ABG Base Excess -14 L (-10--2) Cord VBG pH 7.000 L (7.25-7.45) Cord VBG Base Excess -12 L (-10--2) POC Glucose (70-99) mg/dL Antibody Screen NEGATIVE Screen NEGATIVE (NEGATIVE) RhIG Candidate? YES Rhogam Indicated YES, BABY RH POS H 09/02/20 09/03/20 09/03/20 Range/Units 20:30 01:05 06:02 Hgb (12.0-16.0) g/dL Hct (36.0-46.0) % Cord ABG pH (7.18-7.38) Cord ABG Base Excess (-10--2) Cord VBG pH (7.25-7.45) Cord VBG Base Excess (-10--2) POC Glucose 103 H 100 H 69 L (70-99) mg/dL Antibody Screen Screen (NEGATIVE) RhIG Candidate? Rhogam Indicated 09/03/20 09/03/20 09/03/20 Range/Units 07:25 08:27 10:08 Hgb 11.4 L (12.0-16.0) g/dL Hct 34.4 L (36.0-46.0) % Cord ABG pH (7.18-7.38) Cord ABG Base Excess (-10--2) Cord VBG pH (7.25-7.45) Cord VBG Base Excess (-10--2) POC Glucose 96 97 (70-99) mg/dL Antibody Screen Screen (NEGATIVE) RhIG Candidate? Rhogam Indicated 09/03/20 Range/Units 16:10 Hgb (12.0-16.0) g/dL Hct (36.0-46.0) % Cord ABG pH (7.18-7.38) Cord ABG Base Excess (-10--2) Cord VBG pH (7.25-7.45) Cord VBG Base Excess (-10--2) POC Glucose 120 H (70-99) mg/dL Antibody Screen Screen (NEGATIVE) RhIG Candidate? Rhogam Indicated Med Orders - Current: Current Medications Bisacodyl (Bisacodyl 10 Mg Supp) 10 mg RECTAL ONETIME PRN PRN Reason: Constipation Dextrose/Water (50% Dextrose In Water 50 Ml Syringe) 50 ml IVPUSH ASDIRECTED PRN PRN Reason: Hypoglycemia Diphenhydramine HCl (Diphenhydramine 50 Mg/Ml Sdv) 25 mg IVPUSH Q6H PRN PRN Reason: Itching or Nausea Docusate Sodium (Docusate Sodium 100 Mg Cap) 100 mg PO BID RIAZ Last Admin: 09/03/20 08:45 Dose: 100 mg Documented by: Emollient Ointment (Lanolin 100% Cream 7 Gm Tube) 0 gm TOP ASDIRECTED PRN PRN Reason: Sore Nipples Fentanyl (Fentanyl 100 Mcg/2 Ml Sdv) 50 mcg IVPUSH Q5M PRN PRN Reason: Pain (severe 7-10) Stop: 09/03/20 20:14 Glucagon (Glucagon,Human Recombinant 1 Mg Vial) 1 mg IM ASDIRECTED PRN PRN Reason: Hypoglycemia Hydromorphone HCl (Hydromorphone 2 Mg/Ml Syringe) 1 - 2 mg IVPUSH ONETIME PRN PRN Reason: Pain (severe 7-10) Lactated Ringer's (Ringers, Lactated) 1,000 mls @ 500 mls/hr IV BOLUS [facility] Oxytocin/Sodium Chloride (Oxytocin 30 Unit/500 Ml-Ns) 30 unit in 500 mls @ 250 mls/hr IV TITRATE RIAZ Lactated Ringer's (Ringers, Lactated) 1,000 mls @ 125 mls/hr IV ASDIRECTED [facility] Last Admin: 09/03/20 03:00 Dose: 125 mls/hr Documented by: Oxytocin/Lactated Ringer's (Pitocin In Lr 30 Units/500 Ml) 30 unit in 500 mls @ 150 mls/hr IV TITRATE [facility]; Protocol Tranexamic Acid 1,000 mg/ (Sodium Chloride) 110 mls @ 660 mls/hr IV ONETIME PRN PRN Reason: Bleeding Ibuprofen (Ibuprofen 800 Mg Tab) 800 mg PO Q8H PRN PRN Reason: mild pain or fever Insulin Aspart (Insulin Aspart 100 Units/Ml 3 Ml Pen) 1 - 4 unit SUBCUT TIDAC PRN; Protocol PRN Reason: Blood Glucose Insulin Human NPH (Insulin Isophane Nph, Human 100 Units/Ml 10 Ml Vial) 15 unit SUBCUT BIDAC [facility] Last Admin: 09/03/20 08:41 Dose: 15 unit Documented by: Ketorolac Tromethamine (Ketorolac 15 Mg/Ml Sdv) 15 mg IVPUSH Q6H PRN PRN Reason: Pain (moderate 4-6) Stop: 09/03/20 20:16 Ketorolac Tromethamine (Ketorolac 30 Mg/Ml Sdv) 30 mg IVPUSH Q6H [facility] Stop: 09/03/20 22:01 Last Admin: 09/03/20 12:32 Dose: 30 mg Documented by: Methylergonovine Maleate (Methylergonovine 0.2 Mg/1 Ml Amp) 0.2 mg IM ONETIME PRN PRN Reason: Excessive Vaginal Bleeding Misoprostol (Misoprostol 200 Mcg Tab) 1,000 mcg RECTAL ONETIME PRN PRN Reason: excessive bleeding Nalbuphine HCl (Nalbuphine 10 Mg/1 Ml Vial) 5 mg IM Q6H PRN PRN Reason: Itching Naloxone HCl (Naloxone 0.4 Mg/Ml Syringe) 0.1 mg IVPUSH ASDIRECTED PRN PRN Reason: Respiratory Depression Ondansetron HCl (Ondansetron 4 Mg/2 Ml Sdv) 4 mg IVPUSH ONETIME PRN PRN Reason: Nausea/Vomiting Ondansetron HCl (Ondansetron 4 Mg/2 Ml Sdv) 4 mg IVPUSH Q4H PRN PRN Reason: Nausea/Vomiting Last Admin: 09/02/20 23:53 Dose: 4 mg Documented by: Oxycodone/Acetaminophen (Acetaminophen/Oxycodone 325-5 Mg Tab) 2 tab PO ONETIME PRN PRN Reason: Pain (moderate 4-6) Oxycodone/Acetaminophen (Acetaminophen/Oxycodone 325-5 Mg Tab) 1 tab PO Q4H PRN PRN Reason: Pain (moderate 4-6) Oxycodone/Acetaminophen (Acetaminophen/Oxycodone 325-5 Mg Tab) 2 tab PO Q4H PRN PRN Reason: Pain (moderate 4-6) Oxytocin (Oxytocin 10 Units/1 Ml Sdv) 10 unit IM ASDIRECTED PRN PRN Reason: Excessive Vaginal Bleeding Sodium Chloride (Sodium Chloride 0.9% 10 Ml Syringe) 10 ml FLUSH ASDIRECTED PRN PRN Reason: Keep Vein Open Sodium Chloride (Sodium Chloride 0.9% 2.5 Ml Syringe) 2.5 ml FLUSH ASDIRECTED PRN PRN Reason: Keep Vein Open Sodium Chloride (Sodium Chloride 0.9% 10 Ml Sdv) 10 ml IV ASDIRECTED PRN PRN Reason: IV Use Discontinued Medications Ampicillin Sodium (Ampicillin 1 Gm Vial) Confirm Administered Dose 1 gm .ROUTE .STK-MED ONE Stop: 09/01/20 05:35 Ampicillin Sodium (Ampicillin 2 Gm Vial) Confirm Administered Dose 2 gm .ROUTE .STK-MED ONE Stop: 09/01/20 01:43 Butorphanol Tartrate (Butorphanol 1 Mg/Ml Sdv) 1 mg IVPUSH Q1H PRN PRN Reason: Pain Butorphanol Tartrate (Butorphanol 1 Mg/Ml Sdv) 1 mg IVPUSH Q1H PRN PRN Reason: Pain Last Admin: 09/02/20 14:29 Dose: 1 mg Documented by: Carboprost Tromethamine (Carboprost Tromethamine 250 Mcg/1 Ml Amp) 250 mcg IM ASDIRECTED PRN PRN Reason: Post Hemorrhage Cefazolin Sodium (Cefazolin 1 Gm Vial) Confirm Administered Dose 2 gm .ROUTE .STK-MED ONE Stop: 09/02/20 17:19 Citric Acid/Sodium Citrate (Citric Acid/Sodium Citrate Solution 30 Ml Cup) 30 ml PO ONETIME ONE Stop: 09/02/20 17:11 Dextrose/Water (50% Dextrose In Water 50 Ml Syringe) 50 ml IV ASDIRECTED PRN PRN Reason: Hypoglycemia Glucagon (Glucagon,Human Recombinant 1 Mg Vial) 1 mg IM ASDIRECTED PRN PRN Reason: Hypoglycemia Lactated Ringer's (Ringers, Lactated) 1,000 mls @ 150 mls/hr IV ASDIRECTED RIAZ Last Admin: 09/02/20 16:28 Dose: 125 mls/hr Documented by: Oxytocin/Sodium Chloride (Oxytocin 30 Unit/500 Ml-Ns) 30 unit in 500 mls @ 2 mls/hr IV TITRATE RIAZ; Protocol Tranexamic Acid 1,000 mg/ (Sodium Chloride) 110 mls @ 660 mls/hr IV ONETIME PRN PRN Reason: Bleeding Oxytocin/Sodium Chloride (Oxytocin 30 Unit/500 Ml-Ns) 30 unit in 500 mls @ 2 mls/hr IV TITRATE RIAZ; Protocol Last Admin: 09/02/20 09:06 Dose: 2 munits/min, 2 mls/hr Documented by: Ampicillin Sodium 2 gm/ Sodium (Chloride) 100 mls @ 200 mls/hr IV ONETIME ONE Stop: 09/01/20 02:29 Last Admin: 09/01/20 01:52 Dose: 200 mls/hr Documented by: Ampicillin Sodium 1 gm/ Sodium (Chloride) 50 mls @ 100 mls/hr IV Q4H RIAZ Ampicillin Sodium 1 gm/ Sodium (Chloride) 100 mls @ 100 mls/hr IV Q4H RIAZ Last Admin: 09/02/20 10:10 Dose: 100 mls/hr Documented by: Sodium Chloride (Normal Saline) Confirm Administered Dose 100 mls @ as directed .ROUTE .STK-MED ONE Stop: 09/01/20 05:36 Sodium Chloride (Normal Saline) Confirm Administered Dose 100 mls @ as directed .ROUTE .[facility]-MED ONE Stop: 09/01/20 01:43 Sodium Chloride (Normal Saline) Confirm Administered Dose 50 mls @ as directed .ROUTE .[facility] ONE Stop: 09/01/20 22:16 Ampicillin Sodium 1 gm/ Sodium (Chloride) 50 mls @ 50 mls/hr IV Q4H [facility] Last Admin: 09/02/20 14:15 Dose: 50 mls/hr Documented by: Ropivacaine (Naropin 0.2%) Confirm Administered Dose 100 mls @ as directed .ROUTE .[facility] ONE Stop: 09/02/20 14:48 Cefazolin Sodium/Dextrose 2 gm (/ Premix) 50 mls @ 100 mls/hr IV ONETIME ONE Stop: 09/02/20 17:39 Sodium Chloride (Normal Saline) Confirm Administered Dose 20 mls @ as directed .ROUTE .[facility] ONE Stop: 09/02/20 17:19 Clindamycin Phosphate (Cleocin In D5w 600 Mg/50 Ml) Confirm Administered Dose 50 mls @ as directed .ROUTE .[facility] ONE Stop: 09/02/20 17:31 Insulin Aspart (Insulin Aspart 100 Units/Ml 3 Ml Pen) 1 - 4 unit SUBCUT TIDAC [facility] Last Admin: 09/02/20 01:15 Dose: 2 units Documented by: Insulin Human NPH (Insulin Isophane Nph, Human 100 Units/Ml 10 Ml Vial) 15 unit SUBCUT BIDAC [facility] Last Admin: 09/02/20 22:42 Dose: 15 units Documented by: Lidocaine HCl (Lidocaine 1% 50 Ml Mdv) 50 ml INJECT ONETIME PRN PRN Reason: Laceration repair Lidocaine/Epinephrine (Lidocaine 2% With Epinephrine 1:200,000 20 Ml Sdv) Confirm Administered Dose 20 ml .ROUTE .[facility]-MED ONE Stop: 09/02/20 17:17 Methylergonovine Maleate (Methylergonovine 0.2 Mg/1 Ml Amp) 0.2 mg IM ASDIR ECTED PRN PRN Reason: Post Hemorrhage Midazolam HCl (Midazolam 1 Mg/Ml 2 Ml Sdv) Confirm Administered Dose 2 mg .ROUTE .[facility]-MED ONE Stop: 09/02/20 18:54 Misoprostol (Misoprostol 200 Mcg Tab) 200 mcg PO ONETIME PRN PRN Reason: Post Hemorrhage Misoprostol (Misoprostol 25 Mcg (1/4 Of 100 Mcg) Tab) 25 mcg PO Q4H [facility] Last Admin: 09/02/20 05:05 Dose: 25 mcg Documented by: Misoprostol (Misoprostol 25 Mcg (1/4 Of 100 Mcg) Tab) 25 mcg VAG Q4H [facility] Stop: 09/02/20 05:31 Last Admin: 09/02/20 05:05 Dose: 25 mcg Documented by: Misoprostol (Misoprostol 50 Mcg (1/2 Of 100 Mcg) Tab) 50 mcg PO Q4H [facility] Misoprostol (Misoprostol 50 Mcg (1/2 Of 100 Mcg) Tab) 50 mcg VAG Q4H [facility] Stop: 09/02/20 06:01 Misoprostol (Misoprostol 25 Mcg (1/4 Of 100 Mcg) Tab) Confirm Administered Dose 50 mcg .ROUTE .STK-MED ONE Stop: 09/01/20 01:44 Misoprostol (Misoprostol 25 Mcg (1/4 Of 100 Mcg) Tab) 25 mcg PO Q4H [facility] Last Admin: 09/01/20 10:23 Dose: 25 mcg Documented by: Misoprostol (Misoprostol 25 Mcg (1/4 Of 100 Mcg) Tab) 25 mcg VAG Q4H [facility] Stop: 09/02/20 06:01 Last Admin: 09/02/20 00:31 Dose: 25 mcg Documented by: Morphine Sulfate (Morphine Pf 10 Mg/10 Ml Sdv) Confirm Administered Dose 10 mg .ROUTE .STK-MED ONE Stop: 09/02/20 17:19 Nalbuphine HCl (Nalbuphine 10 Mg/1 Ml Vial) 10 mg IVPUSH Q1H PRN PRN Reason: Pain (severe 7-10) Ondansetron HCl (Ondansetron 4 Mg/2 Ml Sdv) 4 mg IVPUSH Q6H PRN PRN Reason: Nausea/Vomiting Oxytocin (Oxytocin 10 Units/1 Ml Sdv) Confirm Administered Dose 20 unit .ROUTE .STK-MED ONE Stop: 09/02/20 17:19 Oxytocin (Oxytocin 10 Units/1 Ml Sdv) Confirm Administered Dose 10 unit .ROUTE .STK-MED ONE Stop: 09/02/20 18:36 Oxytocin (Oxytocin 10 Units/1 Ml Sdv) Confirm Administered Dose 10 unit .ROUTE .STK-MED ONE Stop: 09/02/20 19:11 Promethazine HCl (Promethazine 25 Mg/Ml Sdv) 12.5 mg IM Q4H PRN PRN Reason: Nausea/Vomiting Last Admin: 09/02/20 13:25 Dose: 12.5 mg Documented by: Sodium Chloride (Sodium Chloride 0.9% 10 Ml Syringe) 10 ml FLUSH ASDIRECTED PRN PRN Reason: Keep Vein Open Sodium Chloride (Sodium Chloride 0.9% 2.5 Ml Syringe) 2.5 ml FLUSH ASDIRECTED PRN PRN Reason: Keep Vein Open Sodium Chloride (Sodium Chloride 0.9% 10 Ml Sdv) 10 ml IV ASDIRECTED PRN PRN Reason: IV Use Sterile Water (Water For Irrigation,Sterile 1,000 Ml Container) 1,000 ml IRR ASDIRECTED PRN PRN Reason: delivery Terbutaline Sulfate (Terbutaline 1 Mg/Ml Sdv) 0.25 mg SUBCUT ASDIRECTED PRN PRN Reason: Tacysystole - Infant Interaction Support Person: , Mother - Recovery Exam Fundal Tone: Firm Fundal Level: 1 Fingerbreadths Below Umbilicus Fundal Placement: Midline Lochia Amount: Small Lochia Color: Rubra/Red Perineum Description: Intact, Minimal Bruising/Swelling Episiotomy/Laceration: None Bladder Status: Indwelling Catheter in Place Urinary Elimination: Indwelling Catheter - Exam General: Alert, Oriented Lungs: Normal Respiratory Effort Cardiovascular: Regular Rate GI/Abdominal Exam: Soft, Non-Tender Extremities: Normal Inspection, No Pedal Edema Psy/Mental Status: Alert, Normal Affect, Normal Mood - Problem List & Annotations (1) Status post primary low transverse section SNOMED Code(s): 031997590, 49293766, [id number], 932111678, 437766520 Code(s): Z98.891 - HISTORY OF UTERINE SCAR FROM PREVIOUS SURGERY Status: Acute Priority: High Current Visit: Yes (2) 38 weeks gestation of SNOMED Code(s): 96679395 Code(s): Z3A.38 - 38 WEEKS GESTATION OF Status: Acute Priority: High Current Visit: Yes (3) Insulin dependent diabetes mellitus SNOMED Code(s): 78548579 Code(s): UEU2913 - Status: Acute Priority: High Current Visit: Yes - Problem List Review Problem List Initiated/Reviewed/Updated: Yes - My Orders Last 24 Hours: My Active Orders 09/02/20 17:10 Patient Status [ADT] Routine Up ad Lola [RC] ASDIRECTED Urinary Catheter Assessment [RC] ASDIRECTED Vital Signs [RC] PER UNIT ROUTINE Sodium Chloride 0.9% [Normal Saline] 10 ml IV ASDIRECTED PRN Sodium Chloride 0.9% [Saline Flush] 10 ml FLUSH ASDIRECTED PRN Sodium Chloride 0.9% [Saline Flush] 2.5 ml FLUSH ASDIRECTED PRN Peripheral IV Insertion Adult [OM.PC] Routine Schedule Procedure [COMM] Per Unit Routine Resuscitation Status Routine 09/02/20 17:12 Notify Provider Vital Signs [RC] PRN 09/02/20 17:15 Lactated Ringers [Ringers, Lactated] 1,000 ml IV BOLUS Oxytocin/0.9 % Sodium Chloride [Oxytocin 30 Unit/500 ML-NS] 30 unit in 500 ml IV TITRATE 09/02/20 20:30 ANTIBODY SCREEN (TYE) [BBK] Routine SCREEN [BBK] Routine RH IMMUNE GLOBULIN [BBK] Routine RHOGAM, [RHIG WORKUP, ] [BBK] Routine 09/02/20 21:53 Acetaminophen/oxyCODONE [Percocet 325-5 MG] 1 tab PO Q4H PRN Acetaminophen/oxyCODONE [Percocet 325-5 MG] 2 tab PO Q4H PRN Lanolin [Lansinoh HPA] See Dose Instructions TOP ASDIRECTED PRN Methylergonovine [Methergine] 0.2 mg IM ONETIME PRN Ondansetron [Zofran] 4 mg IVPUSH Q4H PRN Oxytocin [Pitocin] 10 unit IM ASDIRECTED PRN Tranexamic Acid [Cyklokapron] 1,000 mg Sodium Chloride 0.9% [Normal Saline] 100 ml IV ONETIME bisacodyL [Dulcolax] 10 mg RECTAL ONETIME PRN diphenhydrAMINE [Benadryl] 25 mg IVPUSH Q6H PRN miSOPROStoL [Cytotec] 1,000 mcg RECTAL ONETIME PRN 09/02/20 21:54 Patient Status [ADT] Routine Ambulate [RC] PER UNIT ROUTINE Communication Order [RC] PER UNIT ROUTINE Communication Order [RC] PER UNIT ROUTINE Communication Order [RC] Per Unit Routine May Shower [RC] ASDIRECTED RT Incentive Spirometry [RC] Q2HWA Vital Signs [RC] PER UNIT ROUTINE Assess Lochia [WOMSER] Per Unit Routine Assess Uterine Involution [WOMSER] Per Unit Routine Breast Pump [WOMSER] Per Unit Routine Peripheral IV Discontinue [OM.PC] Routine Sequential Compression Device [OM.PC] Per Unit Routine 09/02/20 21:55 Antiembolic Devices [RC] PER UNIT ROUTINE 09/02/20 21:59 Notify Provider Vital Signs [RC] ASDIRECTED 09/02/20 22:00 Notify Provider Intake and Out [RC] ASDIRECTED Ketorolac [Toradol] 30 mg IVPUSH Q6H Lactated Ringers [Ringers, Lactated] 1,000 ml IV ASDIRECTED Oxytocin/Lactated Ringers [Pitocin in LR 30 Units/500 ML] 30 unit in 500 ml IV TITRATE 09/02/20 22:07 Blood Glucose Check, Bedside [RC] QIDACANDBED Dextrose 50% in Water 50 ml IVPUSH ASDIRECTED PRN Glucagon,Human Recombinant [GlucaGen] 1 mg IM ASDIRECTED PRN 09/02/20 22:16 Insulin Aspart [NovoLOG] 1 - 4 unit SUBCUT TIDAC PRN 09/03/20 07:30 Insulin Isophane NPH, Human [NovoLIN N] 15 unit SUBCUT BIDAC 09/03/20 09:00 Docusate Sodium [Colace] 100 mg PO BID 09/04/20 04:00 Ibuprofen [Motrin] 800 mg PO Q8H PRN - Plan Plan:: 34 yo G1 now P1 S/P PLTCS at 38w3d GA c/b intraoperative bladder injury, repaired by on-call surgeon. Patient and baby are doing well. Hooker draining clear yellow urine. Patient to keep hooker for ~1week. Continue routine care.
[2020-09-03] MEDS ORDERED: metFORMIN 500 MG Tab ONE (19:04)
[2020-09-03] MEDS: metFORMIN 500 MG Tab PO SCH (19:11)
[2020-09-03] MEDS ORDERED: Ibuprofen 800 MG Tab ONE (19:26)
[2020-09-03] MEDS: Ibuprofen 800 MG Tab PO PRN (19:30)
[2020-09-03] MEDS: Docusate Sodium 100 MG Cap PO SCH (21:01)
[2020-09-04] MEDS: Acetaminophen/oxyCODONE 325-5 MG Tab PO PRN ×5 (01:36→22:21)
[2020-09-04] MEDS ORDERED: Ibuprofen 800 MG Tab PO PRN (04:00)
[2020-09-04] MEDS: Ibuprofen 800 MG Tab PO PRN ×2 (06:08→22:20)
[2020-09-04] MEDS ORDERED: metFORMIN 500 MG Tab PO SCH (08:00)
[2020-09-04] MEDS: metFORMIN 500 MG Tab PO SCH (08:30)
[2020-09-04] MEDS: Docusate Sodium 100 MG Cap PO SCH ×2 (08:34→22:21)
--- NOTE | 2020-09-04 17:13 | PCM.PNPP ---
- General Info Date of Service: 09/04/20 Admission Dx/Problem (Free Text): Patient Status Order with Admit Dx/Problem 09/01/20 00:52 Patient Status [ADT] Routine Admission Diagnosis/Problem Admission Diagnosis/Problem 09/01/20 08:52 Karen is a 34 yo at 38+2 weeks gestation (CORIE 09/13/2020) that presents to L&D today for medical induction of labor re: insulin-dependent type 2 diabetes mellitus. Patient seen in office 08/26/[address] Dean, RBAs of IOL and mode of cervical ripening (cytotec) discussed in office, consents signed. Reports adequate movement. Denies painful contractions, LOF, pattie vaginal bleeding at this time. O neg, RI, GBS positive. NKDA, plan for ampicillin prophylaxis in labor. EFW via [place] 8+ lbs. Pertinent medical history includes: DM2, spinal surgery. NKDA. Medications: 1000 mg metformin BID; Humulin Kwikpen 17 units in am and 17 units in pm. Patient has no complaints or concerns at this time. Subjective Update: S/P PLTCS c/b intraoperative bladder injury, repaired. Mother and baby are doing well. Hooker catheter in place, draining clear yellow urine. Patient is passing gas, and passed a small amount of stool. Eating without discomfort. Minimal bleeding. FBG was 68 this patient, patient was asymptomatic. Functional Status: Reports: Pain Controlled - Review of Systems General: Reports: No Symptoms HEENT: Reports: No Symptoms Pulmonary: Reports: No Symptoms Cardiovascular: Reports: No Symptoms Gastrointestinal: Reports: No Symptoms Genitourinary: Reports: No Symptoms Musculoskeletal: Reports: No Symptoms Skin: Reports: No Symptoms Neurological: Reports: No Symptoms Psychiatric: Reports: No Symptoms - General Info Date of Service: 09/04/20 - Patient Data Vital Signs - Most Recent: Last Vital Signs Temp 98.1 F 09/04/20 16:42 Pulse 102 H 09/04/20 16:42 Resp 18 09/04/20 16:42 BP 140/97 H 09/04/20 16:42 Pulse Ox 97 09/04/20 09:11 Weight - Most Recent: 101.605 kg I&O - Last 24 Hours: Intake & Output 05/21/21 05/21/21 05/21/21 06:59 14:59 22:59 Output Total 1475 Balance -1475 Lab Results - Last 24 Hours: Laboratory Results - last 24 hr 09/02/20 09/03/20 09/04/20 Range/Units 20:30 20:26 05:59 POC Glucose 129 H 63 L (70-99) mg/dL Antibody Screen NEGATIVE Screen NEGATIVE (NEGATIVE) RhIG Candidate? YES Rhogam Indicated YES, BABY RH POS H 09/04/20 09/04/20 Range/Units 09:49 13:56 POC Glucose 135 H 105 H (70-99) mg/dL Antibody Screen Screen (NEGATIVE) RhIG Candidate? Rhogam Indicated Med Orders - Current: Current Medications Dextrose/Water (50% Dextrose In Water 50 Ml Syringe) 50 ml IVPUSH ASDIRECTED PRN PRN Reason: Hypoglycemia Docusate Sodium (Docusate Sodium 100 Mg Cap) 100 mg PO BID [facility] Last Admin: 09/04/20 08:34 Dose: 100 mg Documented by: Glucagon (Glucagon,Human Recombinant 1 Mg Vial) 1 mg IM ASDIRECTED PRN PRN Reason: Hypoglycemia Hydromorphone HCl (Hydromorphone 2 Mg/Ml Syringe) 1 - 2 mg IVPUSH ONETIME PRN PRN Reason: Pain (severe 7-10) Ibuprofen (Ibuprofen 800 Mg Tab) 800 mg PO Q6H PRN PRN Reason: Pain (moderate 4-6) Last Admin: 09/04/20 06:08 Dose: 800 mg Documented by: Insulin Aspart (Insulin Aspart 100 Units/Ml 3 Ml Pen) 1 - 4 unit SUBCUT TIDAC PRN; Protocol PRN Reason: Blood Glucose Metformin HCl ([facility] 500 Mg Tab) [facility] Last Admin: 09/04/20 08:30 Dose: 500 mg Documented by: Nalbuphine HCl (Nalbuphine 10 Mg/1 Ml Vial) 5 mg IM Q6H PRN PRN Reason: Itching Naloxone HCl (Naloxone 0.4 Mg/Ml Syringe) 0.1 mg IVPUSH ASDIRECTED PRN PRN Reason: Respiratory Depression Ondansetron HCl (Ondansetron 4 Mg/2 Ml Sdv) 4 mg IVPUSH ONETIME PRN PRN Reason: Nausea/Vomiting Oxycodone/Acetaminophen (Acetaminophen/Oxycodone 325-5 Mg Tab) 2 tab PO ONETIME PRN PRN Reason: Pain (moderate 4-6) Oxycodone/Acetaminophen (Acetaminophen/Oxycodone 325-5 Mg Tab) 1 tab PO Q4H PRN PRN Reason: Pain (moderate 4-6) Last Admin: 09/04/20 06:08 Dose: 1 tab Documented by: Oxycodone/Acetaminophen (Acetaminophen/Oxycodone 325-5 Mg Tab) 2 tab PO Q4H PRN PRN Reason: Pain (severe 7-10) Last Admin: 09/04/20 12:22 Dose: 2 tab Documented by: Sodium Chloride (Sodium Chloride 0.9% 10 Ml Syringe) 10 ml FLUSH ASDIRECTED PRN PRN Reason: Keep Vein Open Sodium Chloride (Sodium Chloride 0.9% 2.5 Ml Syringe) 2.5 ml FLUSH ASDIRECTED PRN PRN Reason: Keep Vein Open Sodium Chloride (Sodium Chloride 0.9% 10 Ml Sdv) 10 ml IV ASDIRECTED PRN PRN Reason: IV Use Discontinued Medications Ampicillin Sodium (Ampicillin 1 Gm Vial) Confirm Administered Dose 1 gm .ROUTE .STK-MED ONE Stop: 09/01/20 05:35 Ampicillin Sodium (Ampicillin 2 Gm Vial) Confirm Administered Dose 2 gm .ROUTE .STK-MED ONE Stop: 09/01/20 01:43 Bisacodyl (Bisacodyl 10 Mg Supp) 10 mg RECTAL ONETIME PRN PRN Reason: Constipation Butorphanol Tartrate (Butorphanol 1 Mg/Ml Sdv) 1 mg IVPUSH Q1H PRN PRN Reason: Pain Butorphanol Tartrate (Butorphanol 1 Mg/Ml Sdv) 1 mg IVPUSH Q1H PRN PRN Reason: Pain Last Admin: 09/02/20 14:29 Dose: 1 mg Documented by: Carboprost Tromethamine (Carboprost Tromethamine 250 Mcg/1 Ml Amp) 250 mcg IM ASDIRECTED PRN PRN Reason: Post Hemorrhage Cefazolin Sodium (Cefazolin 1 Gm Vial) Confirm Administered Dose 2 gm .ROUTE .STK-MED ONE Stop: 09/02/20 17:19 Citric Acid/Sodium Citrate (Citric Acid/Sodium Citrate Solution 30 Ml Cup) 30 ml PO ONETIME ONE Stop: 09/02/20 17:11 Dextrose/Water (50% Dextrose In Water 50 Ml Syringe) 50 ml IV ASDIRECTED PRN PRN Reason: Hypoglycemia Diphenhydramine HCl (Diphenhydramine 50 Mg/Ml Sdv) 25 mg IVPUSH Q6H PRN PRN Reason: Itching or Nausea Docusate Sodium (Docusate Sodium 100 Mg Cap) 100 mg PO BID [facility] Last Admin: 09/03/20 08:45 Dose: 100 mg Documented by: Emollient Ointment (Lanolin 100% Cream 7 Gm Tube) 0 gm TOP ASDIRECTED PRN PRN Reason: Sore Nipples Fentanyl (Fentanyl 100 Mcg/2 Ml Sdv) 50 mcg IVPUSH Q5M PRN PRN Reason: Pain (severe 7-10) Stop: 09/03/20 20:14 Glucagon (Glucagon,Human Recombinant 1 Mg Vial) 1 mg IM ASDIRECTED PRN PRN Reason: Hypoglycemia Lactated Ringer's (Ringers, Lactated) 1,000 mls @ 150 mls/hr IV ASDIRECTED RIAZ Last Admin: 09/02/20 16:28 Dose: 125 mls/hr Documented by: Oxytocin/Sodium Chloride (Oxytocin 30 Unit/500 Ml-Ns) 30 unit in 500 mls @ 2 mls/hr IV TITRATE [facility]; Protocol Tranexamic Acid 1,000 mg/ (Sodium Chloride) 110 mls @ 660 mls/hr IV ONETIME PRN PRN Reason: Bleeding Oxytocin/Sodium Chloride (Oxytocin 30 Unit/500 Ml-Ns) 30 unit in 500 mls @ 2 mls/hr IV TITRATE [facility]; Protocol Last Admin: 09/02/20 09:06 Dose: 2 munits/min, 2 mls/hr Documented by: Ampicillin Sodium 2 gm/ Sodium (Chloride) 100 mls @ 200 mls/hr IV ONETIME ONE Stop: 09/01/20 02:29 Last Admin: 09/01/20 01:52 Dose: 200 mls/hr Documented by: Ampicillin Sodium 1 gm/ Sodium (Chloride) 50 mls @ 100 mls/hr IV Q4H RIAZ Ampicillin Sodium 1 gm/ Sodium (Chloride) 100 mls @ 100 mls/hr IV Q4H [facility] Last Admin: 09/02/20 10:10 Dose: 100 mls/hr Documented by: Sodium Chloride (Normal Saline) Confirm Administered Dose 100 mls @ as directed .ROUTE .STK-MED ONE Stop: 09/01/20 05:36 Sodium Chloride (Normal Saline) Confirm Administered Dose 100 mls @ as directed .ROUTE .[facility] ONE Stop: 09/01/20 01:43 Sodium Chloride (Normal Saline) Confirm Administered Dose 50 mls @ as directed .ROUTE .[facility] ONE Stop: 09/01/20 22:16 Ampicillin Sodium 1 gm/ Sodium (Chloride) 50 mls @ 50 mls/hr IV Q4H [facility] Last Admin: 09/02/20 14:15 Dose: 50 mls/hr Documented by: Ropivacaine (Naropin 0.2%) Confirm Administered Dose 100 mls @ as directed .ROUTE .[facility] ONE Stop: 09/02/20 14:48 Lactated Ringer's (Ringers, Lactated) 1,000 mls @ 500 mls/hr IV BOLUS [facility] Oxytocin/Sodium Chloride (Oxytocin 30 Unit/500 Ml-Ns) 30 unit in 500 mls @ 250 mls/hr IV TITRATE [facility] Cefazolin Sodium/Dextrose 2 gm (/ Premix) 50 mls @ 100 mls/hr IV ONETIME ONE Stop: 09/02/20 17:39 Sodium Chloride (Normal Saline) Confirm Administered Dose 20 mls @ as directed .ROUTE .[facility] ONE Stop: 09/02/20 17:19 Clindamycin Phosphate (Cleocin In D5w 600 Mg/50 Ml) Confirm Administered Dose 50 mls @ as directed .ROUTE .[facility] ONE Stop: 09/02/20 17:31 Lactated Ringer's (Ringers, Lactated) 1,000 mls @ 125 mls/hr IV ASDIRECTED [facility] Last Admin: 09/03/20 03:00 Dose: 125 mls/hr Documented by: Oxytocin/Lactated Ringer's (Pitocin In Lr 30 Units/500 Ml) 30 unit in 500 mls @ 150 mls/hr IV TITRATE [facility]; Protocol Tranexamic Acid 1,000 mg/ (Sodium Chloride) 110 mls @ 660 mls/hr IV ONETIME PRN PRN Reason: Bleeding Ibuprofen (Ibuprofen 800 Mg Tab) 800 mg PO Q8H PRN PRN Reason: mild pain or fever Ibuprofen (Ibuprofen 800 Mg Tab) Confirm Administered Dose 800 mg .ROUTE .[facility] ONE Stop: 09/03/20 19:27 Insulin Aspart (Insulin Aspart 100 Units/Ml 3 Ml Pen) 1 - 4 unit SUBCUT TIDAC [facility] Last Admin: 09/02/20 01:15 Dose: 2 units Documented by: Insulin Human NPH (Insulin Isophane Nph, Human 100 Units/Ml 10 Ml Vial) 15 unit SUBCUT BIDAC [facility] Last Admin: 09/02/20 22:42 Dose: 15 units Documented by: Insulin Human NPH (Insulin Isophane Nph, Human 100 Units/Ml 10 Ml Vial) 15 unit SUBCUT BIDAC [facility] Last Admin: 09/03/20 08:41 Dose: 15 unit Documented by: Ketorolac Tromethamine (Ketorolac 15 Mg/Ml Sdv) 15 mg IVPUSH Q6H PRN PRN Reason: Pain (moderate 4-6) Stop: 09/03/20 20:16 Ketorolac Tromethamine (Ketorolac 30 Mg/Ml Sdv) 30 mg IVPUSH Q6H [facility] Stop: 09/03/20 22:01 Last Admin: 09/03/20 12:32 Dose: 30 mg Documented by: Lidocaine HCl (Lidocaine 1% 50 Ml Mdv) 50 ml INJECT ONETIME PRN PRN Reason: Laceration repair Lidocaine/Epinephrine (Lidocaine 2% With Epinephrine 1:200,000 20 Ml Sdv) Confirm Administered Dose 20 ml .ROUTE .STK-MED ONE Stop: 09/02/20 17:17 Metformin HCl (Metformin 500 Mg Tab) 1,000 mg PO BIDMEALS [facility] Metformin HCl (Metformin 500 Mg Tab) Confirm Administered Dose 1,000 mg .ROUTE .STK-MED ONE Stop: 09/03/20 19:05 Last Admin: 09/04/20 08:34 Dose: 500 mg Documented by: Methylergonovine Maleate (Methylergonovine 0.2 Mg/1 Ml Amp) 0.2 mg IM ASDIRECTED PRN PRN Reason: Post Hemorrhage Methylergonovine Maleate (Methylergonovine 0.2 Mg/1 Ml Amp) 0.2 mg IM ONETIME PRN PRN Reason: Excessive Vaginal Bleeding Midazolam HCl (Midazolam 1 Mg/Ml 2 Ml Sdv) Confirm Administered Dose 2 mg .ROUTE .STK-MED ONE Stop: 09/02/20 18:54 Misoprostol (Misoprostol 200 Mcg Tab) 200 mcg PO ONETIME PRN PRN Reason: Post Hemorrhage Misoprostol (Misoprostol 25 Mcg (4 Of 100 Mcg) Tab) 25 mcg PO Q4H [facility] Last Admin: 09/02/20 05:05 Dose: 25 mcg Documented by: Misoprostol (Misoprostol 25 Mcg (1/4 Of 100 Mcg) Tab) 25 mcg VAG Q4H [facility] Stop: 09/02/20 05:31 Last Admin: 09/02/20 05:05 Dose: 25 mcg Documented by: Misoprostol (Misoprostol 50 Mcg (1/2 Of 100 Mcg) Tab) 50 mcg PO Q4H [facility] Misoprostol (Misoprostol 50 Mcg (1/2 Of 100 Mcg) Tab) 50 mcg VAG Q4H [facility] Stop: 09/02/20 06:01 Misoprostol (Misoprostol 25 Mcg (1/4 Of 100 Mcg) Tab) Confirm Administered Dose 50 mcg .ROUTE .STK-MED ONE Stop: 09/01/20 01:44 Misoprostol (Misoprostol 25 Mcg (1/4 Of 100 Mcg) Tab) 25 mcg PO Q4H [facility] Last Admin: 09/01/20 10:23 Dose: 25 mcg Documented by: Misoprostol (Misoprostol 25 Mcg (1/4 Of 100 Mcg) Tab) 25 mcg VAG Q4H [facility] Stop: 09/02/20 06:01 Last Admin: 09/02/20 00:31 Dose: 25 mcg Documented by: Misoprostol (Misoprostol 200 Mcg Tab) 1,000 mcg RECTAL ONETIME PRN PRN Reason: excessive bleeding Morphine Sulfate (Morphine Pf 10 Mg/10 Ml Sdv) Confirm Administered Dose 10 mg .ROUTE .STK-MED ONE Stop: 09/02/20 17:19 Nalbuphine HCl (Nalbuphine 10 Mg/1 Ml Vial) 10 mg IVPUSH Q1H PRN PRN Reason: Pain (severe 7-10) Ondansetron HCl (Ondansetron 4 Mg/2 Ml Sdv) 4 mg IVPUSH Q6H PRN PRN Reason: Nausea/Vomiting Ondansetron HCl (Ondansetron 4 Mg/2 Ml Sdv) 4 mg IVPUSH Q4H PRN PRN Reason: Nausea/Vomiting Last Admin: 09/02/20 23:53 Dose: 4 mg Documented by: Oxycodone/Acetaminophen (Acetaminophen/Oxycodone 325-5 Mg Tab) 1 tab PO Q4H PRN PRN Reason: Pain (moderate 4-6) Oxycodone/Acetaminophen (Acetaminophen/Oxycodone 325-5 Mg Tab) 2 tab PO Q4H PRN PRN Reason: Pain (moderate 4-6) Last Admin: 09/03/20 19:27 Dose: 2 tab Documented by: Oxytocin (Oxytocin 10 Units/1 Ml Sdv) Confirm Administered Dose 20 unit .ROUTE .STK-MED ONE Stop: 09/02/20 17:19 Oxytocin (Oxytocin 10 Units/1 Ml Sdv) Confirm Administered Dose 10 unit .ROUTE .STK-MED ONE Stop: 09/02/20 18:36 Oxytocin (Oxytocin 10 Units/1 Ml Sdv) Confirm Administered Dose 10 unit .ROUTE .STK-MED ONE Stop: 09/02/20 19:11 Oxytocin (Oxytocin 10 Units/1 Ml Sdv) 10 unit IM ASDIRECTED PRN PRN Reason: Excessive Vaginal Bleeding Promethazine HCl (Promethazine 25 Mg/Ml Sdv) 12.5 mg IM Q4H PRN PRN Reason: Nausea/Vomiting Last Admin: 09/02/20 13:25 Dose: 12.5 mg Documented by: Sodium Chloride (Sodium Chloride 0.9% 10 Ml Syringe) 10 ml FLUSH ASDIRECTED PRN PRN Reason: Keep Vein Open Sodium Chloride (Sodium Chloride 0.9% 2.5 Ml Syringe) 2.5 ml FLUSH ASDIRECTED PRN PRN Reason: Keep Vein Open Sodium Chloride (Sodium Chloride 0.9% 10 Ml Sdv) 10 ml IV ASDIRECTED PRN PRN Reason: IV Use Sterile Water (Water For Irrigation,Sterile 1,000 Ml Container) 1,000 ml IRR ASDIRECTED PRN PRN Reason: delivery Terbutaline Sulfate (Terbutaline 1 Mg/Ml Sdv) 0.25 mg SUBCUT ASDIRECTED PRN PRN Reason: Tacysystole - Infant Interaction Disposition, : at Bedside Interaction: Holding Infant Infant Feeding: Breastfed Infant; Nursed Well Support Person: , Mother - Recovery Exam Fundal Tone: Firm Fundal Level: 2 Fingerbreadths Below Umbilicus Fundal Placement: Midline Lochia Amount: Scant Lochia Color: Rubra/Red Perineum Description: Intact, Minimal Bruising/Swelling Episiotomy/Laceration: None Bladder Status: Indwelling Catheter in Place Urinary Elimination: Indwelling Catheter - Exam General: Alert, Oriented HEENT: Pupils Equal Neck: Supple Lungs: Normal Respiratory Effort Cardiovascular: Regular Rate GI/Abdominal Exam: Soft Extremities: Normal Inspection Wound/Incisions: Healing Well Neurological: No New Focal Deficit Psy/Mental Status: Alert, Normal Affect, Normal Mood - Problem List & Annotations (1) Status post primary low transverse section SNOMED Code(s): 289850563, [id number], [id number], [id number], [id number] Code(s): Z98.891 - HISTORY OF UTERINE SCAR FROM PREVIOUS SURGERY Status: Acute Priority: High Current Visit: Yes (2) 38 weeks gestation of SNOMED Code(s): 92291094 Code(s): Z3A.38 - 38 WEEKS GESTATION OF Status: Acute Priority: High Current Visit: Yes (3) Insulin dependent diabetes mellitus SNOMED Code(s): 04308598 Code(s): [id number] - Status: Acute Priority: High Current Visit: Yes - Problem List Review Problem List Initiated/Reviewed/Updated: Yes - My Orders Last 24 Hours: My Active Orders 09/03/20 19:05 metFORMIN [Glucophage] 1,000 mg PO BIDMEALS 09/03/20 19:30 Ibuprofen [Motrin] 800 mg PO Q6H PRN 09/03/20 20:04 Resuscitation Status Routine 09/03/20 20:30 Acetaminophen/oxyCODONE [Percocet 325-5 MG] 1 tab PO Q4H PRN Acetaminophen/oxyCODONE [Percocet 325-5 MG] 2 tab PO Q4H PRN 09/03/20 21:00 Docusate Sodium [Colace] 100 mg PO BID - Plan Plan:: 34 yo G1 now P1 S/P PLTCS at 38w3d GA c/b intraoperative bladder injury, repaired by on-call surgeon. Patient and baby are doing well. Hooker continue to drain clear yellow urine. Patient to keep hooker for ~1week. BG has been running low. Patient switched from insulin to metformin, pregestational dose. Continue routine care. Continue to monitor FBG and 1hr after meal
--- NOTE | 2020-09-05 01:44 | PCM.PNPP ---
- General Info Date of Service: 09/05/20 Admission Dx/Problem (Free Text): Patient Status Order with Admit Dx/Problem 09/01/20 00:52 Patient Status [ADT] Routine Admission Diagnosis/Problem Admission Diagnosis/Problem 09/01/20 08:52 Karen is a 34 yo at 38+2 weeks gestation (CORIE 09/13/2020) that presents to L&D today for medical induction of labor re: insulin-dependent type 2 diabetes mellitus. Patient seen in office 08/26/[address] Dean, Moise of IOL and mode of cervical ripening (cytotec) discussed in office, consents signed. Reports adequate movement. Denies painful contractions, LOF, pattie vaginal bleeding at this time. O neg, RI, GBS positive. NKDA, plan for ampicillin prophylaxis in labor. EFW via [place] 8+ lbs. Pertinent medical history includes: DM2, spinal surgery. NKDA. Medications: 1000 mg metformin BID; Humulin Kwikpen 17 units in am and 17 units in pm. Patient has no complaints or concerns at this time. Subjective Update: Karen is a 34 yo current PPD3 s/p primary LTCS to term, viable NBF at 38+2 weeks gestation (CORIE 09/13/2020) follwing FTP during medical induction of labor re: insulin-dependent type 2 diabetes mellitus. Delivery complicated by albert- operative bladder injury repaired with General Surgery intraoperatively. O neg/O pos (RhoGam administered 09/03/2020), RI, GBS positive with adequate ampicillin prophylaxis and albert-operative antibiotics. NKDA. Medications: 1000 mg metformin BID being declined, currently accepting 500 mg metformin BID. Declining blood sugars with RN at bedside, Humulin Kwikpen 17 units in am and 17 units in pm not currently being administered due to inability to monitor FSBSs (as patient is declining). Patient has no complaints or concerns at this time. Resting comfortably in bed with at beside in bassinet. Independently ambulating, hydrating, eating. Hooker catheter to remain in place x 7 days . Breast and bottle feeding without issues. Uterus firm @U. Moderate vaginal bleeding without passage of clots. Standard LTCS post- operative dressing clean, dry, intact. /postoperative pain well controlled with PO percocet and ibuprofen. Patient verbalizes desire to be discharge home at earliest availability. Dr. Dean to round today for assessment and possible discharge. Functional Status: Reports: Pain Controlled, Tolerating Diet, Ambulating, Other (Post-operative hooker catheter in place, draining.) - Review of Systems General: Reports: No Symptoms HEENT: Reports: No Symptoms Pulmonary: Reports: No Symptoms Cardiovascular: Reports: No Symptoms Gastrointestinal: Reports: No Symptoms Genitourinary: Reports: No Symptoms Musculoskeletal: Reports: No Symptoms Skin: Reports: No Symptoms Neurological: Reports: No Symptoms Psychiatric: Reports: No Symptoms - General Info Date of Service: 09/05/20 - Patient Data Vital Signs - Most Recent: Last Vital Signs Temp 97.8 F 09/04/20 19:27 Pulse 102 H 09/04/20 19:27 Resp 18 09/04/20 19:27 BP 151/111 H 09/04/20 19: Pulse Ox 99 09/04/20 19:27 Weight - Most Recent: 224 lb Lab Results - Last 24 Hours: Laboratory Results - last 24 hr 09/04/20 09/04/20 09/04/20 Range/Units 05:59 09:49 13:56 POC Glucose 63 L 135 H 105 H (70-99) mg/dL Med Orders - Current: Current Medications Dextrose/Water (50% Dextrose In Water 50 Ml Syringe) 50 ml IVPUSH ASDIRECTED PRN PRN Reason: Hypoglycemia Docusate Sodium (Docusate Sodium 100 Mg Cap) 100 mg PO BID [facility] Last Admin: 09/04/20 22:21 Dose: 100 mg Documented by: Glucagon (Glucagon,Human Recombinant 1 Mg Vial) 1 mg IM ASDIRECTED PRN PRN Reason: Hypoglycemia Hydromorphone HCl (Hydromorphone 2 Mg/Ml Syringe) 1 - 2 mg IVPUSH ONETIME PRN PRN Reason: Pain (severe 7-10) Ibuprofen (Ibuprofen 800 Mg Tab) 800 mg PO Q6H PRN PRN Reason: Pain (moderate 4-6) Last Admin: 09/04/20 22:20 Dose: 800 mg Documented by: Insulin Aspart (Insulin Aspart 100 Units/Ml 3 Ml Pen) 1 - 4 unit SUBCUT TIDAC PRN; Protocol PRN Reason: Blood Glucose Metformin HCl (Metformin 500 Mg Tab) [facility] Last Admin: 09/04/20 08:30 Dose: 500 mg Documented by: Nalbuphine HCl (Nalbuphine 10 Mg/1 Ml Vial) 5 mg IM Q6H PRN PRN Reason: Itching Naloxone HCl (Naloxone 0.4 Mg/Ml Syringe) 0.1 mg IVPUSH ASDIRECTED PRN PRN Reason: Respiratory Depression Ondansetron HCl (Ondansetron 4 Mg/2 Ml Sdv) 4 mg IVPUSH ONETIME PRN PRN Reason: Nausea/Vomiting Oxycodone/Acetaminophen (Acetaminophen/Oxycodone 325-5 Mg Tab) 2 tab PO ONETIME PRN PRN Reason: Pain (moderate 4-6) Oxycodone/Acetaminophen (Acetaminophen/Oxycodone 325-5 Mg Tab) 1 tab PO Q4H PRN PRN Reason: Pain (moderate 4-6) Last Admin: 09/04/20 22:21 Dose: 1 tab Documented by: Oxycodone/Acetaminophen (Acetaminophen/Oxycodone 325-5 Mg Tab) 2 tab PO Q4H PRN PRN Reason: Pain (severe 7-10) Last Admin: 09/04/20 18:06 Dose: 2 tab Documented by: Sodium Chloride (Sodium Chloride 0.9% 10 Ml Syringe) 10 ml FLUSH ASDIRECTED PRN PRN Reason: Keep Vein Open Sodium Chloride (Sodium Chloride 0.9% 2.5 Ml Syringe) 2.5 ml FLUSH ASDIRECTED PRN PRN Reason: Keep Vein Open Sodium Chloride (Sodium Chloride 0.9% 10 Ml Sdv) 10 ml IV ASDIRECTED PRN PRN Reason: IV Use Discontinued Medications Ampicillin Sodium (Ampicillin 1 Gm Vial) Confirm Administered Dose 1 gm .ROUTE .STK-MED ONE Stop: 09/01/20 05:35 Ampicillin Sodium (Ampicillin 2 Gm Vial) Confirm Administered Dose 2 gm .ROUTE .STK-MED ONE Stop: 09/01/20 01:43 Bisacodyl (Bisacodyl 10 Mg Supp) 10 mg RECTAL ONETIME PRN PRN Reason: Constipation Butorphanol Tartrate (Butorphanol 1 Mg/Ml Sdv) 1 mg IVPUSH Q1H PRN PRN Reason: Pain Butorphanol Tartrate (Butorphanol 1 Mg/Ml Sdv) 1 mg IVPUSH Q1H PRN PRN Reason: Pain Last Admin: 09/02/20 14:29 Dose: 1 mg Documented by: Carboprost Tromethamine (Carboprost Tromethamine 250 Mcg/1 Ml Amp) 250 mcg IM ASDIRECTED PRN PRN Reason: Post Hemorrhage Cefazolin Sodium (Cefazolin 1 Gm Vial) Confirm Administered Dose 2 gm .ROUTE .STK-MED ONE Stop: 09/02/20 17:19 Citric Acid/Sodium Citrate (Citric Acid/Sodium Citrate Solution 30 Ml Cup) 30 ml PO ONETIME ONE Stop: 09/02/20 17:11 Dextrose/Water (50% Dextrose In Water 50 Ml Syringe) 50 ml IV ASDIRECTED PRN PRN Reason: Hypoglycemia Diphenhydramine HCl (Diphenhydramine 50 Mg/Ml Sdv) 25 mg IVPUSH Q6H PRN PRN Reason: Itching or Nausea Docusate Sodium (Docusate Sodium 100 Mg Cap) 100 mg PO BID [facility] Last Admin: 09/03/20 08:45 Dose: 100 mg Documented by: Emollient Ointment (Lanolin 100% Cream 7 Gm Tube) 0 gm TOP ASDIRECTED PRN PRN Reason: Sore Nipples Fentanyl (Fentanyl 100 Mcg/2 Ml Sdv) 50 mcg IVPUSH Q5M PRN PRN Reason: Pain (severe 7-10) Stop: 09/03/20 20:14 Glucagon (Glucagon,Human Recombinant 1 Mg Vial) 1 mg IM ASDIRECTED PRN PRN Reason: Hypoglycemia Lactated Ringer's (Ringers, Lactated) 1,000 mls @ 150 mls/hr IV ASDIRECTED [facility]IA[facility] Last Admin: 09/02/20 16:28 Dose: 125 mls/hr Documented by: Oxytocin/Sodium Chloride (Oxytocin 30 Unit/500 Ml-Ns) 30 unit in 500 mls @ 2 mls/hr IV TITRATE [facility]; Protocol Tranexamic Acid 1,000 mg/ (Sodium Chloride) 110 mls @ 660 mls/hr IV ONETIME PRN PRN Reason: Bleeding Oxytocin/Sodium Chloride (Oxytocin 30 Unit/500 Ml-Ns) 30 unit in 500 mls @ 2 mls/hr IV TITRATE [facility]; Protocol Last Admin: 09/02/20 09:06 Dose: 2 munits/min, 2 mls/hr Documented by: Ampicillin Sodium 2 gm/ Sodium (Chloride) 100 mls @ 200 mls/hr IV ONETIME ONE Stop: 09/01/20 02:29 Last Admin: 09/01/20 01:52 Dose: 200 mls/hr Documented by: Ampicillin Sodium 1 gm/ Sodium (Chloride) 50 mls @ 100 mls/hr IV Q4H [facility] Ampicillin Sodium 1 gm/ Sodium (Chloride) 100 mls @ 100 mls/hr IV Q4H [facility] Last Admin: 09/02/20 10:10 Dose: 100 mls/hr Documented by: Sodium Chloride (Normal Saline) Confirm Administered Dose 100 mls @ as directed .ROUTE .[facility] ONE Stop: 09/01/20 05:36 Sodium Chloride (Normal Saline) Confirm Administered Dose 100 mls @ as directed .ROUTE .[facility] ONE Stop: 09/01/20 01:43 Sodium Chloride (Normal Saline) Confirm Administered Dose 50 mls @ as directed .ROUTE .[facility] ONE Stop: 09/01/20 22:16 Ampicillin Sodium 1 gm/ Sodium (Chloride) 50 mls @ 50 mls/hr IV Q4H [facility] Last Admin: 09/02/20 14:15 Dose: 50 mls/hr Documented by: Ropivacaine (Naropin 0.2%) Confirm Administered Dose 100 mls @ as directed .ROUTE .[facility] ONE Stop: 09/02/20 14:48 Lactated Ringer's (Ringers, Lactated) 1,000 mls @ 500 mls/hr IV BOLUS [facility] Oxytocin/Sodium Chloride (Oxytocin 30 Unit/500 Ml-Ns) 30 unit in 500 mls @ 250 mls/hr IV TITRATE [facility] Cefazolin Sodium/Dextrose 2 gm (/ Premix) 50 mls @ 100 mls/hr IV ONETIME ONE Stop: 09/02/20 17:39 Sodium Chloride (Normal Saline) Confirm Administered Dose 20 mls @ as directed .ROUTE .[facility] ONE Stop: 09/02/20 17:19 Clindamycin Phosphate (Cleocin In D5w 600 Mg/50 Ml) Confirm Administered Dose 50 mls @ as directed .ROUTE .[facility] ONE Stop: 09/02/20 17:31 Lactated Ringer's (Ringers, Lactated) 1,000 mls @ 125 mls/hr IV ASDIRECTED [facility] Last Admin: 09/03/20 03:00 Dose: 125 mls/hr Documented by: Oxytocin/Lactated Ringer's (Pitocin In Lr 30 Units/500 Ml) 30 unit in 500 mls @ 150 mls/hr IV TITRATE [facility]; Protocol Tranexamic Acid 1,000 mg/ (Sodium Chloride) 110 mls @ 660 mls/hr IV ONETIME PRN PRN Reason: Bleeding Ibuprofen (Ibuprofen 800 Mg Tab) 800 mg PO Q8H PRN PRN Reason: mild pain or fever Ibuprofen (Ibuprofen 800 Mg Tab) Confirm Administered Dose 800 mg .ROUTE .STK- MED ONE Stop: 09/03/20 19:27 Insulin Aspart (Insulin Aspart 100 Units/Ml 3 Ml Pen) 1 - 4 unit SUBCUT TIDAC [facility] Last Admin: 09/02/20 01:15 Dose: 2 units Documented by: Insulin Human NPH (Insulin Isophane Nph, Human 100 Units/Ml 10 Ml Vial) 15 unit SUBCUT BIDAC [facility] Last Admin: 09/02/20 22:42 Dose: 15 units Documented by: Insulin Human NPH (Insulin Isophane Nph, Human 100 Units/Ml 10 Ml Vial) 15 unit SUBCUT BIDAC [facility] Last Admin: 09/03/20 08:41 Dose: 15 unit Documented by: Ketorolac Tromethamine (Ketorolac 15 Mg/Ml Sdv) 15 mg IVPUSH Q6H PRN PRN Reason: Pain (moderate 4-6) Stop: 09/03/20 20:16 Ketorolac Tromethamine (Ketorolac 30 Mg/Ml Sdv) 30 mg IVPUSH Q6H [facility] Stop: 09/03/20 22:01 Last Admin: 09/03/20 12:32 Dose: 30 mg Documented by: Lidocaine HCl (Lidocaine 1% 50 Ml Mdv) 50 ml INJECT ONETIME PRN PRN Reason: Laceration repair Lidocaine/Epinephrine (Lidocaine 2% With Epinephrine 1:200,000 20 Ml Sdv) Confirm Administered Dose 20 ml .ROUTE .STK-MED ONE Stop: 09/02/20 17:17 Metformin HCl (Metformin 500 Mg Tab) 1,000 mg PO BIDMEALS [facility] Metformin HCl (Metformin 500 Mg Tab) Confirm Administered Dose 1,000 mg .ROUTE .STK-MED ONE Stop: 09/03/20 19:05 Last Admin: 09/04/20 08:34 Dose: 500 mg Documented by: Methylergonovine Maleate (Methylergonovine 0.2 Mg/1 Ml Amp) 0.2 mg IM ASDIRECTED PRN PRN Reason: Post Hemorrhage Methylergonovine Maleate (Methylergonovine 0.2 Mg/1 Ml Amp) 0.2 mg IM ONETIME PRN PRN Reason: Excessive Vaginal Bleeding Midazolam HCl (Midazolam 1 Mg/Ml 2 Ml Sdv) Confirm Administered Dose 2 mg .ROUTE .STK-MED ONE Stop: 09/02/20 18:54 Misoprostol (Misoprostol 200 Mcg Tab) 200 mcg PO ONETIME PRN PRN Reason: Post Hemorrhage Misoprostol (Misoprostol 25 Mcg (1/4 Of 100 Mcg) Tab) 25 mcg PO Q4H [facility] Last Admin: 09/02/20 05:05 Dose: 25 mcg Documented by: Misoprostol (Misoprostol 25 Mcg (1/4 Of 100 Mcg) Tab) 25 mcg VAG Q4H [facility] Stop: 09/02/20 05:31 Last Admin: 09/02/20 05:05 Dose: 25 mcg Documented by: Misoprostol (Misoprostol 50 Mcg (1/2 Of 100 Mcg) Tab) 50 mcg PO Q4H [facility] Misoprostol (Misoprostol 50 Mcg (1/2 Of 100 Mcg) Tab) 50 mcg VAG Q4H [facility] Stop: 09/02/20 06:01 Misoprostol (Misoprostol 25 Mcg (1/4 Of 100 Mcg) Tab) Confirm Administered Dose 50 mcg .ROUTE .STK-MED ONE Stop: 09/01/20 01:44 Misoprostol (Misoprostol 25 Mcg (1/4 Of 100 Mcg) Tab) 25 mcg PO Q4H [facility] Last Admin: 09/01/20 10:23 Dose: 25 mcg Documented by: Misoprostol (Misoprostol 25 Mcg (1/4 Of 100 Mcg) Tab) 25 mcg VAG Q4H [facility] Stop: 09/02/20 06:01 Last Admin: 09/02/20 00:31 Dose: 25 mcg Documented by: Misoprostol (Misoprostol 200 Mcg Tab) 1,000 mcg RECTAL ONETIME PRN PRN Reason: excessive bleeding Morphine Sulfate (Morphine Pf 10 Mg/10 Ml Sdv) Confirm Administered Dose 10 mg .ROUTE .STK-MED ONE Stop: 09/02/20 17:19 Nalbuphine HCl (Nalbuphine 10 Mg/1 Ml Vial) 10 mg IVPUSH Q1H PRN PRN Reason: Pain (severe 7-10) Ondansetron HCl (Ondansetron 4 Mg/2 Ml Sdv) 4 mg IVPUSH Q6H PRN PRN Reason: Nausea/Vomiting Ondansetron HCl (Ondansetron 4 Mg/2 Ml Sdv) 4 mg IVPUSH Q4H PRN PRN Reason: Nausea/Vomiting Last Admin: 09/02/20 23:53 Dose: 4 mg Documented by: Oxycodone/Acetaminophen (Acetaminophen/Oxycodone 325-5 Mg Tab) 1 tab PO Q4H PRN PRN Reason: Pain (moderate 4-6) Oxycodone/Acetaminophen (Acetaminophen/Oxycodone 325-5 Mg Tab) 2 tab PO Q4H PRN PRN Reason: Pain (moderate 4-6) Last Admin: 09/03/20 19:27 Dose: 2 tab Documented by: Oxytocin (Oxytocin 10 Units/1 Ml Sdv) Confirm Administered Dose 20 unit .ROUTE .STK-MED ONE Stop: 09/02/20 17:19 Oxytocin (Oxytocin 10 Units/1 Ml Sdv) Confirm Administered Dose 10 unit .ROUTE .STK-MED ONE Stop: 09/02/20 18:36 Oxytocin (Oxytocin 10 Units/1 Ml Sdv) Confirm Administered Dose 10 unit .ROUTE .STK-MED ONE Stop: 09/02/20 19:11 Oxytocin (Oxytocin 10 Units/1 Ml Sdv) 10 unit IM ASDIRECTED PRN PRN Reason: Excessive Vaginal Bleeding Promethazine HCl (Promethazine 25 Mg/Ml Sdv) 12.5 mg IM Q4H PRN PRN Reason: Nausea/Vomiting Last Admin: 09/02/20 13:25 Dose: 12.5 mg Documented by: Sodium Chloride (Sodium Chloride 0.9% 10 Ml Syringe) 10 ml FLUSH ASDIRECTED PRN PRN Reason: Keep Vein Open Sodium Chloride (Sodium Chloride 0.9% 2.5 Ml Syringe) 2.5 ml FLUSH ASDIRECTED PRN PRN Reason: Keep Vein Open Sodium Chloride (Sodium Chloride 0.9% 10 Ml Sdv) 10 ml IV ASDIRECTED PRN PRN Reason: IV Use Sterile Water (Water For Irrigation,Sterile 1,000 Ml Container) 1,000 ml IRR ASDIRECTED PRN PRN Reason: delivery Terbutaline Sulfate (Terbutaline 1 Mg/Ml Sdv) 0.25 mg SUBCUT ASDIRECTED PRN PRN Reason: Tacysystole - Infant Interaction Disposition, : at Bedside Infant Interaction: Not Interacting Infant Feeding: Bottle Fed , Breastfed Infant; Nursed Well, Continues to Breastfeed Support Person: , Mother - Recovery Exam Fundal Tone: Firm Fundal Level: At Umbilicus Fundal Placement: Midline Lochia Amount: Moderate Lochia Color: Rubra/Red Perineum Description: Intact, Minimal Bruising/Swelling Episiotomy/Laceration: None Bladder Status: Indwelling Catheter in Place Urinary Elimination: Indwelling Catheter - Exam General: Alert, Oriented, Cooperative, No Acute Distress HEENT: Pupils Equal, Mucous Membr. Moist/[place] Neck: Supple Lungs: Clear to Auscultation, Normal Respiratory Effort Cardiovascular: Regular Rate, Regular Rhythm GI/Abdominal Exam: Normal Bowel Sounds, Soft, Non-Tender, No Organomegaly, No Distention Extremities: Normal Inspection, Normal Range of Motion, Non-Tender, No Pedal Edema, Normal Capillary Refill Skin: Warm, Dry, Intact Wound/Incisions: Dressing Dry and Intact Psy/Mental Status: Alert, Normal Affect, Normal Mood - Problem List & Annotations (1) Status post primary low transverse section SNOMED Code(s): 109862844, [id number], 162707179, [id number], 985530838 Code(s): Z98.891 - HISTORY OF UTERINE SCAR FROM PREVIOUS SURGERY Status: Acute Priority: High Current Visit: Yes (2) Failure of induction of labor by oxytocic drugs SNOMED Code(s): 85464702 Code(s): O61.0 - FAILED MEDICAL INDUCTION OF LABOR Status: Acute Priority: High Current Visit: Yes (3) Type 2 diabetes mellitus SNOMED Code(s): 13129135 Code(s): E11.9 - TYPE 2 DIABETES MELLITUS WITHOUT COMPLICATIONS Status: Acute Priority: High Current Visit: Yes (4) Insulin dependent diabetes mellitus SNOMED Code(s): 74040830 Code(s): BWK0299 - Status: Acute Priority: High Current Visit: Yes - Problem List Review Problem List Initiated/Reviewed/Updated: Yes - My Orders Last 24 Hours: My Active Orders 09/04/20 12:36 Consult to Marketing Strategy Manager [Consult to Diabetic Nurse Specialist] [CONS] Routine - Plan Plan:: Continue to monitor inpatient S/P primary LTCS d/t failure to induce re: uncontrolled DM2. VSS, afebrile. Mild to moderate BP elevations noted, asymptomatic at this time. Medications: 1000 mg metformin BID being declined, currently accepting 500 mg metformin BID. Declining blood sugars with RN at bedside, Humulin Kwikpen 17 units in am and 17 units in pm not currently being administered due to inability to monitor FSBSs (as patient is declining). Patient continues to be counseled by bedside staff about importance of FSBS monitoring and adherence to POC. Plan to continue to independently ambulate 3-5 time per day, hydrate, eat. Hooker catheter to remain in place x 7 days . Continue to breast and bottle feeding ; may consult as needed for problems or concerns. Continue pain control with PO percocet and ibuprofen. Postoperative incision site to be kept clean with Dial/antimicrobial soap and warm water x 1-2 times pe r day, pat dry, apply clean gauze dressing thereafter. To remain kept clean and dry between dressing changes. Dr. Dean to round today for assessment and possible discharge.
[2020-09-05] MEDS: Acetaminophen/oxyCODONE 325-5 MG Tab PO PRN (06:10)
[2020-09-05] MEDS: Docusate Sodium 100 MG Cap PO SCH (09:11)
[2020-09-05] MEDS: metFORMIN 500 MG Tab PO SCH (09:11)
--- NOTE | 2020-09-05 12:09 | PCM.DCSUM1 ---
Discharge Summary - Hospital Course HPI Initial Comments: Karen is a 34 yo at 38+2 weeks gestation (CORIE 09/13/2020) that presents to L&D today for medical induction of labor re: insulin-dependent type 2 diabetes mellitus. Patient seen in office 08/26/[address] Dean, RBAs of IOL and mode of cervical ripening (cytotec) discussed in office, consents signed. Reports adequate movement. Denies painful contractions, LOF, pattie vaginal bleeding at this time. O neg, RI, GBS positive. NKDA, plan for ant enatal ampicillin prophylaxis in labor. EFW via Leopolds 8+ lbs. Pertinent medical history includes: DM2, spinal surgery. NKDA. Medications: 1000 mg metformin BID; Humulin Kwikpen 17 units in am and 17 units in pm. Patient has no complaints or concerns at this time. Diagnosis: Stroke: No - Discharge Data Discharge Date: 09/05/20 Discharge Disposition: Home, Self-Care 01 Condition: Good - Referral to Home Health Primary Care Physician: PCP None - Discharge Diagnosis/Problem(s) (1) Status post primary low transverse section SNOMED Code(s): 466317257, [id number], [id number], [id number], [id number] ICD Code: Z98.891 - HISTORY OF UTERINE SCAR FROM PREVIOUS SURGERY Status: Acute Priority: High Current Visit: Yes (2) Insulin dependent diabetes mellitus SNOMED Code(s): 25662957 ICD Code: [id number] - Status: Acute Priority: Medium Current Visit: Yes - Patient Summary/Data Consults: Consultations 09/04/20 12:36 Consult to Securities And Real Estate Director [Consult to Diabetic Nurse Specialist] [CONS] Routine - Patient Instructions Diet: Regular Diet as Tolerated, Diabetic Diet Activity: No Lifting Over 10 Pounds - Discharge Plan *PRESCRIPTION DRUG MONITORING PROGRAM REVIEWED*: Not Applicable *COPY OF PRESCRIPTION DRUG MONITORING REPORT IN PATIENT TISHA: Not Applicable Home Medications: Home Meds Insulin NPH Human Isophane [Humulin N Kwikpen] 17 units SUBCUT BID 09/01/20 [History] metFORMIN HCl [Metformin HCl] 1,000 mg PO BID 09/01/20 [History] Patient Handouts: Indwelling Urinary Catheter Care, Adult, [id number], Delivery, Care After Referrals: TeMeredith Jacome MD [Physician] - 10/15/20 1:00 pm (You may bring your baby with you. Masks are required.) - Discharge Summary/Plan Comment DC Time >30 min.: Yes Discharge Summary/Plan Comment: 34 yo G1 now P1 S/P PLTCS at 38w3d GA c/b intraoperative bladder injury, repaired by on-call surgeon. Patient and baby are doing well. Hooker continue to drain clear yellow urine. Patient to keep hooker for ~1week. Pregestational DM: Patient switched from insulin to metformin, pregestational dose, with maintained controlled BG Patient to check BG at home. Follow-up in 1 week. - General Info Date of Service: 09/05/20 Admission Dx/Problem (Free Text: Patient Status Order with Admit Dx/Problem 09/01/20 00:52 Patient Status [ADT] Routine Admission Diagnosis/Problem Admission Diagnosis/Problem 09/01/20 08:52 Karen is a 34 yo at 38+2 weeks gestation (CORIE 09/13/2020) that presents to L&D today for medical induction of labor re: insulin-dependent type 2 diabetes mellitus. Patient seen in office 08/26/2020 with BETINA PatelAs of IOL and mode of cervical ripening (cytotec) discussed in office, consents signed. Reports adequate movement. Denies painful contractions, LOF, pattie vaginal bleeding at this time. O neg, RI, GBS positive. NKDA, plan for ampicillin prophylaxis in labor. EFW via Leopolds 8+ lbs. Pertinent medical history includes: DM2, spinal surgery. NKDA. Medications: 1000 mg metformin BID; Humulin Kwikpen 17 units in am and 17 units in pm. Patient has no complaints or concerns at this time. Subjective Update: S/P PLTCS c/b intraoperative bladder injury, repaired. Mother and baby are doing well. Hooker catheter in place, draining clear yellow urine. Patient is passing gas, and has passed stool. Eating without discomfort. Minimal bleeding. Patient switched from insulin to metformin Functional Status: Reports: Pain Controlled - Review of Systems General: Reports: No Symptoms HEENT: Reports: No Symptoms Pulmonary: Reports: No Symptoms Cardiovascular: Reports: No Symptoms Gastrointestinal: Reports: No Symptoms Genitourinary: Reports: No Symptoms Musculoskeletal: Reports: No Symptoms Skin: Reports: No Symptoms Neurological: Reports: No Symptoms Psychiatric: Reports: No Symptoms - Patient Data Vitals - Most Recent: Last Vital Signs Temp 97.4 F 09/05/20 08:41 Pulse 113 H 09/05/20 08:41 Resp 18 09/05/20 08:41 BP 111/91 H 09/05/20 08:41 Pulse Ox 96 09/05/20 08:40 Weight - Most Recent: 101.605 kg Lab Results - Last 24 hrs: Laboratory Results - last 24 hr 09/04/20 Range/Units 13:56 POC Glucose 105 H (70-99) mg/dL Med Orders - Current: Current Medications Dextrose/Water (50% Dextrose In Water 50 Ml Syringe) 50 ml IVPUSH ASDIRECTED PRN PRN Reason: Hypoglycemia Docusate Sodium (Docusate Sodium 100 Mg Cap) 100 mg PO BID [facility] Last Admin: 09/05/20 09:11 Dose: 100 mg Documented by: Glucagon (Glucagon,Human Recombinant 1 Mg Vial) 1 mg IM ASDIRECTED PRN PRN Reason: Hypoglycemia Hydromorphone HCl (Hydromorphone 2 Mg/Ml Syringe) 1 - 2 mg IVPUSH ONETIME PRN PRN Reason: Pain (severe 7-10) Ibuprofen (Ibuprofen 800 Mg Tab) 800 mg PO Q6H PRN PRN Reason: Pain (moderate 4-6) Last Admin: 09/04/20 22:20 Dose: 800 mg Documented by: Insulin Aspart (Insulin Aspart 100 Units/Ml 3 Ml Pen) 1 - 4 unit SUBCUT TIDAC PRN; Protocol PRN Reason: Blood Glucose [facility]formin [facility] ([facility] 500 Mg Tab) [facility] Last Admin: 09/05/20 09:11 Dose: 500 mg Documented by: Nalbuphine HCl (Nalbuphine 10 Mg/1 Ml Vial) 5 mg IM Q6H PRN PRN Reason: Itching Naloxone HCl (Naloxone 0.4 Mg/Ml Syringe) 0.1 mg IVPUSH ASDIRECTED PRN PRN Reason: Respiratory Depression Ondansetron HCl (Ondansetron 4 Mg/2 Ml Sdv) 4 mg IVPUSH ONETIME PRN PRN Reason: Nausea/Vomiting Oxycodone/Acetaminophen (Acetaminophen/Oxycodone 325-5 Mg Tab) 2 tab PO ONETIME PRN PRN Reason: Pain (moderate 4-6) Last Admin: 09/05/20 11:49 Dose: 2 tab Documented by: Oxycodone/Acetaminophen (Acetaminophen/Oxycodone 325-5 Mg Tab) 1 tab PO Q4H PRN PRN Reason: Pain (moderate 4-6) Last Admin: 09/04/20 22:21 Dose: 1 tab Documented by: Oxycodone/Acetaminophen (Acetaminophen/Oxycodone 325-5 Mg Tab) 2 tab PO Q4H PRN PRN Reason: Pain (severe 7-10) Last Admin: 09/05/20 06:10 Dose: 2 tab Documented by: Sodium Chloride (Sodium Chloride 0.9% 10 Ml Syringe) 10 ml FLUSH ASDIRECTED PRN PRN Reason: Keep Vein Open Sodium Chloride (Sodium Chloride 0.9% 2.5 Ml Syringe) 2.5 ml FLUSH ASDIRECTED PRN PRN Reason: Keep Vein Open Sodium Chloride (Sodium Chloride 0.9% 10 Ml Sdv) 10 ml IV ASDIRECTED PRN PRN Reason: IV Use Discontinued Medications Ampicillin Sodium (Ampicillin 1 Gm Vial) Confirm Administered Dose 1 gm .ROUTE .STK-MED ONE Stop: 09/01/20 05:35 Ampicillin Sodium (Ampicillin 2 Gm Vial) Confirm Administered Dose 2 gm .ROUTE .STK-MED ONE Stop: 09/01/20 01:43 Bisacodyl (Bisacodyl 10 Mg Supp) 10 mg RECTAL ONETIME PRN PRN Reason: Constipation Butorphanol Tartrate (Butorphanol 1 Mg/Ml Sdv) 1 mg IVPUSH Q1H PRN PRN Reason: Pain Butorphanol Tartrate (Butorphanol 1 Mg/Ml Sdv) 1 mg IVPUSH Q1H PRN PRN Reason: Pain Last Admin: 09/02/20 14:29 Dose: 1 mg Documented by: Carboprost Tromethamine (Carboprost Tromethamine 250 Mcg/1 Ml Amp) 250 mcg IM ASDIRECTED PRN PRN Reason: Post Hemorrhage Cefazolin Sodium (Cefazolin 1 Gm Vial) Confirm Administered Dose 2 gm .ROUTE .STK-MED ONE Stop: 09/02/20 17:19 Citric Acid/Sodium Citrate (Citric Acid/Sodium Citrate Solution 30 Ml Cup) 30 ml PO ONETIME ONE Stop: 09/02/20 17:11 Dextrose/Water (50% Dextrose In Water 50 Ml Syringe) 50 ml IV ASDIRECTED PRN PRN Reason: Hypoglycemia Diphenhydramine HCl (Diphenhydramine 50 Mg/Ml Sdv) 25 mg IVPUSH Q6H PRN PRN Reason: Itching or Nausea Docusate Sodium (Docusate Sodium 100 Mg Cap) 100 mg PO BID [facility] Last Admin: 09/03/20 08:45 Dose: 100 mg Documented by: Emollient Ointment (Lanolin 100% Cream 7 Gm Tube) 0 gm TOP ASDIRECTED PRN PRN Reason: Sore Nipples Fentanyl (Fentanyl 100 Mcg/2 Ml Sdv) 50 mcg IVPUSH Q5M PRN PRN Reason: Pain (severe 7-10) Stop: 09/03/20 20:14 Glucagon (Glucagon,Human Recombinant 1 Mg Vial) 1 mg IM ASDIRECTED PRN PRN Reason: Hypoglycemia Lactated Ringer's (Ringers, Lactated) 1,000 mls @ 150 mls/hr IV ASDIRECTED RIAZ Last Admin: 09/02/20 16:28 Dose: 125 mls/hr Documented by: Oxytocin/Sodium Chloride (Oxytocin 30 Unit/500 Ml-Ns) 30 unit in 500 mls @ 2 mls/hr IV TITRATE [facility]; Protocol Tranexamic Acid 1,000 mg/ (Sodium Chloride) 110 mls @ 660 mls/hr IV ONETIME PRN PRN Reason: Bleeding Oxytocin/Sodium Chloride (Oxytocin 30 Unit/500 Ml-Ns) 30 unit in 500 mls @ 2 mls/hr IV TITRATE [facility]; Protocol Last Admin: 09/02/20 09:06 Dose: 2 munits/min, 2 mls/hr Documented by: Ampicillin Sodium 2 gm/ Sodium (Chloride) 100 mls @ 200 mls/hr IV ONETIME ONE Stop: 09/01/20 02:29 Last Admin: 09/01/20 01:52 Dose: 200 mls/hr Documented by: Ampicillin Sodium 1 gm/ Sodium (Chloride) 50 mls @ 100 mls/hr IV Q4H [facility] Ampicillin Sodium 1 gm/ Sodium (Chloride) 100 mls @ 100 mls/hr IV Q4H [facility] Last Admin: 09/02/20 10:10 Dose: 100 mls/hr Documented by: Sodium Chloride (Normal Saline) Confirm Administered Dose 100 mls @ as directed .ROUTE .[facility] ONE Stop: 09/01/20 05:36 Sodium Chloride (Normal Saline) Confirm Administered Dose 100 mls @ as directed .ROUTE .[facility] ONE Stop: 09/01/20 01:43 Sodium Chloride (Normal Saline) Confirm Administered Dose 50 mls @ as directed .ROUTE .[facility] ONE Stop: 09/01/20 22:16 Ampicillin Sodium 1 gm/ Sodium (Chloride) 50 mls @ 50 mls/hr IV Q4H [facility] Last Admin: 09/02/20 14:15 Dose: 50 mls/hr Documented by: Ropivacaine (Naropin 0.2%) Confirm Administered Dose 100 mls @ as directed .ROUTE .[facility] ONE Stop: 09/02/20 14:48 Lactated Ringer's (Ringers, Lactated) 1,000 mls @ 500 mls/hr IV BOLUS RIAZ Oxytocin/Sodium Chloride (Oxytocin 30 Unit/500 Ml-Ns) 30 unit in 500 mls @ 250 mls/hr IV TITRATE [facility] Cefazolin Sodium/Dextrose 2 gm (/ Premix) 50 mls @ 100 mls/hr IV ONETIME ONE Stop: 09/02/20 17:39 Sodium Chloride (Normal Saline) Confirm Administered Dose 20 mls @ as directed .ROUTE .[facility] ONE Stop: 09/02/20 17:19 Clindamycin Phosphate (Cleocin In D5w 600 Mg/50 Ml) Confirm Administered Dose 50 mls @ as directed .ROUTE .[facility] ONE Stop: 09/02/20 17:31 Lactated Ringer's (Ringers, Lactated) 1,000 mls @ 125 mls/hr IV ASDIRECTED [facility] Last Admin: 09/03/20 03:00 Dose: 125 mls/hr Documented by: Oxytocin/Lactated Ringer's (Pitocin In Lr 30 Units/500 Ml) 30 unit in 500 mls @ 150 mls/hr IV TITRATE [facility]; Protocol Tranexamic Acid 1,000 mg/ (Sodium Chloride) 110 mls @ 660 mls/hr IV ONETIME PRN PRN Reason: Bleeding Ibuprofen (Ibuprofen 800 Mg Tab) 800 mg PO Q8H PRN PRN Reason: mild pain or fever Ibuprofen (Ibuprofen 800 Mg Tab) Confirm Administered Dose 800 mg .ROUTE .[facility] ONE Stop: 09/03/20 19:27 Insulin Aspart (Insulin Aspart 100 Units/Ml 3 Ml Pen) 1 - 4 unit SUBCUT TIDAC [facility] Last Admin: 09/02/20 01:15 Dose: 2 units Documented by: Insulin Human NPH (Insulin Isophane Nph, Human 100 Units/Ml 10 Ml Vial) 15 unit SUBCUT BIDAC [facility] Last Admin: 09/02/20 22:42 Dose: 15 units Documented by: Insulin Human NPH (Insulin Isophane Nph, Human 100 Units/Ml 10 Ml Vial) 15 unit SUBCUT BIDAC [facility] Last Admin: 09/03/20 08:41 Dose: 15 unit Documented by: Ketorolac Tromethamine (Ketorolac 15 Mg/Ml Sdv) 15 mg IVPUSH Q6H PRN PRN Reason: Pain (moderate 4-6) Stop: 09/03/20 20:16 Ketorolac Tromethamine (Ketorolac 30 Mg/Ml Sdv) 30 mg IVPUSH Q6H [facility] Stop: 09/03/20 22:01 Last Admin: 09/03/20 12:32 Dose: 30 mg Documented by: Lidocaine HCl (Lidocaine 1% 50 Ml Mdv) 50 ml INJECT ONETIME PRN PRN Reason: Laceration repair Lidocaine/Epinephrine (Lidocaine 2% With Epinephrine 1:200,000 20 Ml Sdv) Confirm Administered Dose 20 ml .ROUTE .STK-MED ONE Stop: 09/02/20 17:17 Metformin HCl (Metformin 500 Mg Tab) 1,000 mg PO BIDMEALS [facility] Metformin HCl (Metformin 500 Mg Tab) Confirm Administered Dose 1,000 mg .ROUTE .STK-MED ONE Stop: 09/03/20 19:05 Last Admin: 09/04/20 08:34 Dose: 500 mg Documented by: Methylergonovine Maleate (Methylergonovine 0.2 Mg/1 Ml Amp) 0.2 mg IM ASDIRECTED PRN PRN Reason: Post Hemorrhage Methylergonovine Maleate (Methylergonovine 0.2 Mg/1 Ml Amp) 0.2 mg IM ONETIME PRN PRN Reason: Excessive Vaginal Bleeding Midazolam HCl (Midazolam 1 Mg/Ml 2 Ml Sdv) Confirm Administered Dose 2 mg .ROUTE .STK-MED ONE Stop: 09/02/20 18:54 Misoprostol (Misoprostol 200 Mcg Tab) 200 mcg PO ONETIME PRN PRN Reason: Post Hemorrhage Misoprostol (Misoprostol 25 Mcg (1/4 Of 100 Mcg) Tab) 25 mcg PO Q4H [facility] Last Admin: 09/02/20 05:05 Dose: 25 mcg Documented by: Misoprostol (Misoprostol 25 Mcg (1/4 Of 100 Mcg) Tab) 25 mcg VAG Q4H [facility] Stop: 09/02/20 05:31 Last Admin: 09/02/20 05:05 Dose: 25 mcg Documented by: Misoprostol (Misoprostol 50 Mcg (1/2 Of 100 Mcg) Tab) 50 mcg PO Q4H [facility] Misoprostol (Misoprostol 50 Mcg (1/2 Of 100 Mcg) Tab) 50 mcg VAG Q4H [facility] Stop: 09/02/20 06:01 Misoprostol (Misoprostol 25 Mcg (1/4 Of 100 Mcg) Tab) Confirm Administered Dose 50 mcg .ROUTE .STK-MED ONE Stop: 09/01/20 01:44 Misoprostol (Misoprostol 25 Mcg (1/4 Of 100 Mcg) Tab) 25 mcg PO Q4H [facility] Last Admin: 09/01/20 10:23 Dose: 25 mcg Documented by: Misoprostol (Misoprostol 25 Mcg (1/4 Of 100 Mcg) Tab) 25 mcg VAG Q4H [facility] Stop: 09/02/20 06:01 Last Admin: 09/02/20 00:31 Dose: 25 mcg Documented by: Misoprostol (Misoprostol 200 Mcg Tab) 1,000 mcg RECTAL ONETIME PRN PRN Reason: excessive bleeding Morphine Sulfate (Morphine Pf 10 Mg/10 Ml Sdv) Confirm Administered Dose 10 mg .ROUTE .STK-MED ONE Stop: 09/02/20 17:19 Nalbuphine HCl (Nalbuphine 10 Mg/1 Ml Vial) 10 mg IVPUSH Q1H PRN PRN Reason: Pain (severe 7-10) Ondansetron HCl (Ondansetron 4 Mg/2 Ml Sdv) 4 mg IVPUSH Q6H PRN PRN Reason: Nausea/Vomiting Ondansetron HCl (Ondansetron 4 Mg/2 Ml Sdv) 4 mg IVPUSH Q4H PRN PRN Reason: Nausea/Vomiting Last Admin: 09/02/20 23:53 Dose: 4 mg Documented by: Oxycodone/Acetaminophen (Acetaminophen/Oxycodone 325-5 Mg Tab) 1 tab PO Q4H PRN PRN Reason: Pain (moderate 4-6) Oxycodone/Acetaminophen (Acetaminophen/Oxycodone 325-5 Mg Tab) 2 tab PO Q4H PRN PRN Reason: Pain (moderate 4-6) Last Admin: 09/03/20 19:27 Dose: 2 tab Documented by: Oxytocin (Oxytocin 10 Units/1 Ml Sdv) Confirm Administered Dose 20 unit .ROUTE .STK-MED ONE Stop: 09/02/20 17:19 Oxytocin (Oxytocin 10 Units/1 Ml Sdv) Confirm Administered Dose 10 unit .ROUTE .STK-MED ONE Stop: 09/02/20 18:36 Oxytocin (Oxytocin 10 Units/1 Ml Sdv) Confirm Administered Dose 10 unit .ROUTE .STK-MED ONE Stop: 09/02/20 19:11 Oxytocin (Oxytocin 10 Units/1 Ml Sdv) 10 unit IM ASDIRECTED PRN PRN Reason: Excessive Vaginal Bleeding Promethazine HCl (Promethazine 25 Mg/Ml Sdv) 12.5 mg IM Q4H PRN PRN Reason: Nausea/Vomiting Last Admin: 09/02/20 13:25 Dose: 12.5 mg Documented by: Sodium Chloride (Sodium Chloride 0.9% 10 Ml Syringe) 10 ml FLUSH ASDIRECTED PRN PRN Reason: Keep Vein Open Sodium Chloride (Sodium Chloride 0.9% 2.5 Ml Syringe) 2.5 ml FLUSH ASDIRECTED PRN PRN Reason: Keep Vein Open Sodium Chloride (Sodium Chloride 0.9% 10 Ml Sdv) 10 ml IV ASDIRECTED PRN PRN Reason: IV Use Sterile Water (Water For Irrigation,Sterile 1,000 Ml Container) 1,000 ml IRR ASDIRECTED PRN PRN Reason: delivery Terbutaline Sulfate (Terbutaline 1 Mg/Ml Sdv) 0.25 mg SUBCUT ASDIRECTED PRN PRN Reason: Tacysystole - Exam General: Reports: Alert, Oriented Neck: Reports: Supple Lungs: Reports: Normal Respiratory Effort Cardiovascular: Reports: Regular Rate GI/Abdominal Exam: Soft, Non-Tender (Female) Exam: Normal External Exam, Other (Hooker catheter in place, draining clear fluid. No blood) Extremities: Normal Inspection Wound/Incisions: Reports: Healing Well Psy/Mental Status: Reports: Alert, Normal Affect, Normal Mood
--- NOTE | 2020-09-05 16:29 | OR ---
SURGEON: Meredith Dean MD DATE OF PROCEDURE: 09/02/2020 INDICATIONS FOR SURGERY: Term , insulin-dependent gestational diabetes, and arrest of labor. PREOPERATIVE DIAGNOSES: 1. Term . 2. Arrest of labor. POSTOPERATIVE DIAGNOSES: 1. Term . 2. Arrest of labor. 3. Category 2 tracing. OPERATION: section. PRIMARY SURGEON: Meredith Dean MD ANESTHESIA: Epidural. INTRAOPERATIVE FLUID REPLACEMENT: 1500 mL. ESTIMATED BLOOD LOSS: 1000 mL. DRAIN AND PACK: Phillips catheter draining blood-tinged urine. SPECIMEN: Placenta. FINDINGS: Delivery details: Live female. 7 pounds 0 ounces. scores 4 and 9. Nuchal cord x1. Placenta delivered spontaneously. Maternal delivery complications: Intraoperative bladder injury. complications: None. TECHNIQUE: Karen Duncan was taken to the operating room. She was then transferred to the operating table and placed in the dorsal supine position with a leftward tilt. After adequate anesthesia was confirmed, she was prepped and draped in the usual sterile fashion. A time-out was completed. With IV fluid running and Phillips catheter draining, a Pfannenstiel skin incision was made in the lower abdomen. The incision was carried down with Bovie cautery through the subcutaneous tissue to the underlying rectus fascia. The rectus fascia was then incised in the midline and extended laterally with Landeros scissor. The underlying rectus muscle was dissected off sharply and bluntly. The rectus muscles were then in the midline. The parietal peritoneum was found to have significant fatty tissue including the omentum. The patient was placed in the Trendelenburg tilt to allow bowel to be shift caudally. The parietal peritoneum was identified, and during dissection of the parietal peritoneum, there was a laceration of the dome of the bladder. Once the uterus was identified, a self- retaining retractor was placed. The lower uterine segment was identified in the surgical field. A bladder flap was made, and the lower uterine segment was incised in a transverse fashion. The incision was extended laterally with cephalocaudal traction. The infant's vertex was delivered atraumatically followed by the reminder of the infant. The cord was clamped and cut, and the infant was handed off to the pediatric staff. Dissection of the cord was collected for cord gases. The placenta was delivered manually. The uterus was then cleaned of all clots and debris, and the uterine incision was reapproximated in a running locked stitch fashion utilizing 0 Vicryl. A second running stitch imbricating the first layer was performed utilizing another 0 Vicryl. Hemostasis was excellent. The general surgeon on-call who was called upon identifying the intraoperative bladder injury arrived in the room at that time after closure of the uterus. The uterus incision was once again assessed and found to be hemostatic. The self-retaining retractor was removed, and the bladder was identified including the injury on the dome, which was about 2 cm long and went through the mucosa. The incision was repaired by the general surgeon, Dr. Sánchez, utilizing a polyglycolic and closed in 2 layers. The bladder was once again assessed and found to be hemostatic. No urine was identified in the field. At that point, the general surgeon on-call, Dr. Sánchez, left, and the peritoneum was closed with a running stitch fashion utilizing a 3-0 Vicryl. The rectus fascia was reapproximated with 0 Vicryl with a PDS in a running stitch fashion. Subcutaneous tissue was irrigated and closed with a running stitch utilizing a 3-0 Vicryl. Hemostasis was assured. The skin was then closed with a 4-0 Monocryl in a subcuticular fashion. All sponge, needle, and instrument counts were correct per the OR nursing staff x2. The patient was taken to the recovery room in a stable condition. Prior to surgery, the patient had received 2 g of Ancef and 600 mg of clindamycin. RADHA / JESSIE /[id number]
== END 2020-09-05 12:30 | disposition home or self-care (01) | DRG 540 ==
LOC: MW.OB 00:14 → MW.OBCHECK 00:14 → MW.OB 00:52 → OBSVTOIN 09-02 18:24 → MW.OB 09-02 23:30
PROVIDERS: ADMIT Obstetrics & Gynecology Obstetrics; ATTEND Obstetrics & Gynecology Obstetrics
PROC: 10D00Z1 Extraction of Products of Conception, Low, Open Approach (ICD-10-PCS; principal; 2020-09-02)
PROC: 3E0P7VZ Introduction of Hormone into Female Reproductive, Via Natural or Artificial Opening (ICD-10-PCS; 2020-09-02)
PROC: 3E033VJ Introduction of Other Hormone into Peripheral Vein, Percutaneous Approach (ICD-10-PCS; 2020-09-02)
PROC: 10907ZC Drainage of Amniotic Fluid, Therapeutic from Products of Conception, Via Natural or Artificial Opening (ICD-10-PCS; 2020-09-02)
PROC: 4A1HXCZ Monitoring of Products of Conception, Cardiac Rate, External Approach (ICD-10-PCS; 2020-09-02)
PROC: 3E0R3BZ Introduction of Anesthetic Agent into Spinal Canal, Percutaneous Approach (ICD-10-PCS; 2020-09-02)
PROC: 0TQB0ZZ Repair Bladder, Open Approach (ICD-10-PCS; 2020-09-02)
DX: O24.12 Pre-existing type 2 diabetes mellitus, in childbirth (principal); E11.9 Type 2 diabetes mellitus without complications; Z3A.38 38 weeks gestation of pregnancy; Z37.0 Single live birth; Z20.822 Contact with and (suspected) exposure to COVID-19; Z87.891 Personal history of nicotine dependence; O99.824 Streptococcus B carrier state complicating childbirth; S37.20XA Unspecified injury of bladder, initial encounter
CPT/HCPCS: 36415; 36430; 51702; 59025; 82803; 82947; 85014; 85018; 85027; 85460; 86592; 86850; 86900; 86901; 88307; A9270-GY; J0290; J0595; J0690; J1815-GY; J1885; J2250; J2270; J2405; J2550; J2590; J2792; J2795; J3490; J7120; U0002